=== PATIENT | male | born 1940 | race Caucasian/White ===

== ENCOUNTER 2019-01-09 22:28 | Observation (INO) | payer MEDICARE ==
[~2019-01-09] VITALS: Ht 175.3 cm
[~2019-01-09 22:28] MED LIST: ACETAMINOPHEN325 MG PO; CEFTRIAXONE1 G/VIAL IM; CELEXA20 MG PO; FLORAJEN3 CAPS460 MG PO; GLUCOPHAGE1000 MG PO; K-DUR20 MEQ PO; LANTUS INSULIN10 ML SQ; LIPITOR10 MG PO; MAG-OXIDE400 MG PO; NAMENDA5 MG PO; NEURONTIN 300300 MG PO; NORVASC5 MG PO; NOVOLIN R100 U/ML SC; NOVOLIN R100 U/ML SQ; PEPCID20 MG PO; PLAVIX75 MG PO; Rocephin INJ IM; SENOKOT-S TABLE1 TAB PO; ULTRAM50 MG PO; VITAMIN D10000 UNI1 PO; ZOLOFT50 MG PO
[2019-01-09] MEDS ORDERED: NORVASC5 MG PO (22:36)
[2019-01-09] MEDS ORDERED: NOVOLIN R (22:37)
[2019-01-09] MEDS ORDERED: PLAVIX75 MG PO (22:37)
[2019-01-09] MEDS ORDERED: K-DUR20 MEQ PO (22:38)
[2019-01-09] MEDS ORDERED: LISINOPRIL5 MG PO (22:38)
[2019-01-09 22:46] LABS: BASOPHILS 0.3 % (0-2); HEMATOCRIT 38.3 % (42.0-54.0); HEMOGLOBIN 12.5 g/dL (13.5-17.5); LYMPHOCYTES 29.2 % (15-50); MCH 28.7 pg (26.0-34.0); MCHC 32.6 g/dL (31.0-37.0); MEAN PLATELET VOLUME 8.6 fL (7.4-10.4); MONOCYTES 11.2 % (2-11); NEUTROPHILS 56.3 % (40-80); PLATELET COUNT 196 10x3/uL (130-400); RBC 4.35 10x6/uL (4.20-6.10); RDW 16.9 % (11.5-14.5); WBC 7.1 10x3/uL (4.8-10.8)
[2019-01-09 23:10] LABS: ALBUMIN 3.4 g/dL (3.4-5.0); ANION GAP 12.2 mmol/L (8-16); BILIRUBIN - TOTAL 0.25 mg/dL (0.2-1.3); CALCIUM 8.9 mg/dL (8.5-10.1); CARBON DIOXIDE 27.5 mmol/L (21.0-32.0); CREATININE - SERUM 1.4 mg/dL (0.6-1.3); MAGNESIUM - SERUM 2.3 mg/dL (1.8-2.4); POTASSIUM - SERUM 4.7 mmol/L (3.5-5.1); PROTEIN - SERUM 7.2 g/dL (6.4-8.2); TROPONIN-I 0.02 ng/mL (0.000-0.060)
[2019-01-09 23:38] VITALS: BP 122/50
--- NOTE | 2019-01-10 00:12 | NUR ---
PT ASSISTED WITH URINAL. PT NOW RESTING COMFORTABLY ON BED.
--- NOTE | 2019-01-10 00:57 | NUR ---
PT ARRIVED TO FLOOR BY WHEELCHAIR, REPORT TAKEN FROM SUKUMAR MEEHAN RN. PT IS A POOR HISTORIAN. UPON ENTERING ROOM ASSISTED PT IN AMBULATING TO TOILET. PT IS CURRENTLY SITTING ON TOILET. NO S/S OF DISTRESS NOTED. WILL CTM.
--- NOTE | 2019-01-10 01:49 | NUR ---
STILL WAITING FOR PT TO ALLOW TELEMETRY TO BE ESTABLISHED, PT IS CURRENTLY STILL SITTING ON TOILET AND PUSHING AWAY WHEN OFFERED ASSISTANCE. WILL CTM.
--- NOTE | 2019-01-10 02:14 | NUR ---
PT STILL SITTING ON TOILET, REFUSES TO LEAVE, WHEN ASKED IF HE NEEDS ASSISTANCE HE MAKES APHASIC SOUNDS "SI, SI, SI" AND THEN LOOKS BACK DOWN AT THE GROUND. WILL CTM.
[2019-01-10 03:46] VITALS: Ht 175.3 cm
--- NOTE | 2019-01-10 03:58 | NUR ---
PT RESTING COMFORTABLY IN BED AFTER BEING ASSISTED FROM TOILET. ONE LARGE BOWEL MOVEMENT OBSERVED. NO S/S OF DISTRESS NOTED. YAMILKA ALARM TURNED ON. CALL LIGHT IN REACH. WILL CTM.
--- NOTE | 2019-01-10 04:41 | NUR ---
ORDERED ECG PERFORMED AND PLACED ON CHART
--- NOTE | 2019-01-10 06:37 | NUR ---
PT REFUSES TO WEAR TELEMETRY. WILL NOTIFY ONCOMING NURSE.
--- NOTE | 2019-01-10 07:20 | NUR ---
ASSESSMENT COMPLETED. AWAKE AND ALERT. CONFUSED.RIGHT AC SL. HAS A LITTLE RIGHT SIDED WEAKNESS. REFUES TELEMERTY. PT HAS A BED ALARM TO BED. . WILL MONITOR
[2019-01-10 08:53] LABS: CHOL - HDL RATIO 1.9 ratio (2.3-4.9); LDL-HDL RATIO 0.6 ratio (1.5-3.5)
--- NOTE | 2019-01-10 09:39 | NUR ---
REFUSES TO STAY IN ROOM. PT IN CHAIR IN HALLWAY. WILL MONITOR
[2019-01-10] MEDS ORDERED: PEPCID PO (12:35)
[2019-01-10] MEDS ORDERED: LIPITOR10 MG PO (12:35)
[2019-01-10] MEDS ORDERED: LANTUS INSULIN10 ML SC (12:36)
[2019-01-10] MEDS ORDERED: SENNA8.6 MG PO (12:36)
[2019-01-10] MEDS ORDERED: HUMALOG 30100 UNITS/ SC (12:37)
[2019-01-10] MEDS ORDERED: VITAMIN D5000 UNIT PO (12:38)
[2019-01-10 12:46] VITALS: BP 104/71
--- NOTE | 2019-01-10 13:39 | NUR ---
I have reviewed this patient and I concur with the Shift Assessment completed by the Licensed Practical Nurse today this shift.
== END 2019-01-10 13:30 ==
LOC: D.ER 22:28 → OBSVTIME 23:53 → D.EDHOLD 23:53 → D.M2 01-10 00:11
PROVIDERS: Family Medicine; ADMIT Family Medicine; ATTEND Family Medicine
DX: R07.89 Other chest pain (principal); N28.9 Disorder of kidney and ureter, unspecified; I69.354 Hemiplegia and hemiparesis following cerebral infarction affecting left non-dominant side; I10 Essential (primary) hypertension; E11.9 Type 2 diabetes mellitus without complications; Z74.09 Other reduced mobility; F41.8 Other specified anxiety disorders; E78.5 Hyperlipidemia, unspecified; K21.9 Gastro-esophageal reflux disease without esophagitis; K59.09 Other constipation; E55.9 Vitamin D deficiency, unspecified; I25.10 Atherosclerotic heart disease of native coronary artery without angina pectoris; R00.8 Other abnormalities of heart beat; E11.40 Type 2 diabetes mellitus with diabetic neuropathy, unspecified

== ENCOUNTER 2019-01-19 15:00 | Inpatient (IN) | payer MEDICARE ==
[~2019-01-19] VITALS: Ht 175.3 cm; Wt 90.2 kg
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
[~2019-01-19 15:00] MED LIST changes: +HUMALOG 30100 UNITS/ SC; +LANTUS INSULIN10 ML SC; +LISINOPRIL5 MG PO; +NOVOLIN R; +PEPCID PO; +SENNA8.6 MG PO; +VITAMIN D5000 UNIT PO
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
[2019-01-19 16:59] VITALS: BP 119/64; BMI 28.4
[2019-01-19 17:04] LABS: APPEARANCE CLEAR (CLEAR); COLOR YELLOW (YELLOW); NITRITE NEGATIVE (NEGATIVE); PROTEIN NEGATIVE (NEGATIVE)
[2019-01-19 17:05] LABS: BILIRUBIN NEGATIVE (NEGATIVE); GLUCOSE 1000 mg/dL (NEGATIVE); KETONE NEGATIVE (NEGATIVE); UROBILINOGEN NORMAL (NORMAL)
[2019-01-19 17:14] LABS: BASOPHILS 0.3 % (0-2); EOSINOPHILS 2.7 % (0-7); HEMATOCRIT 37.6 % (42.0-54.0); HEMOGLOBIN 12.3 g/dL (13.5-17.5); IMMATURE GRANULOCYTES 0.2 % (0-5); LYMPHOCYTES 26.2 % (15-50); MCH 28.5 pg (26.0-34.0); MCHC 32.7 g/dL (31.0-37.0); MCV 87.2 fL (80.0-100.0); MEAN PLATELET VOLUME 9.2 fL (7.4-10.4); MONOCYTES 8.4 % (2-11); NEUTROPHILS 62.2 % (40-80); PLATELET COUNT 201 10x3/uL (130-400); RBC 4.31 10x6/uL (4.20-6.10); RDW 16.3 % (11.5-14.5); WBC 6.6 10x3/uL (4.8-10.8)
[2019-01-19 17:46] LABS: ALBUMIN 3.6 g/dL (3.4-5.0); ANION GAP 14.6 mmol/L (8-16); BILIRUBIN - TOTAL 0.31 mg/dL (0.2-1.3); CALCIUM 8.7 mg/dL (8.5-10.1); CARBON DIOXIDE 25.1 mmol/L (21.0-32.0); CHOL - HDL RATIO 2.3 ratio (2.3-4.9); CREATININE - SERUM 1.4 mg/dL (0.6-1.3); LDL-HDL RATIO 0.7 ratio (1.5-3.5); POTASSIUM - SERUM 4.7 mmol/L (3.5-5.1); PROTEIN - SERUM 6.9 g/dL (6.4-8.2); THYROID STIMULATING HORMONE 2.22 uIU/mL (0.36-3.74)
[2019-01-19] MEDS ORDERED: GLUCOPHAGE500 MG PO (18:12)
[2019-01-19] MEDS ORDERED: JARDIANCE10 MG PO (18:12)
[2019-01-19] MEDS ORDERED: LANTUS INSULIN10 ML SC (18:13)
[2019-01-19] MEDS ORDERED: HYDROCODON-ACE1 EAC7 PO (18:15)
[2019-01-19] MEDS ORDERED: MAG-OXIDE400 MG PO (18:16)
[2019-01-19 20:21] VITALS: BP 124/66
--- NOTE | 2019-01-20 02:00 | NUR ---
RECEIVED IN DAYROOM. SITTING ON COUCH WITH PEERS BY HIS SIDE. CALM AND COOPERATIVE WITH CARE AND ASSESSMENT. NO AGGRESSIVE BEHAVIORS. REDIRECT AND REORIENT NEEDED. RESTING IN BED WITH EYES CLOSED AT THIS TIME. CONTINUE PLAN OF CARE.
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
--- NOTE | 2019-01-20 08:00 | NUR ---
PRN MED EFFECTIVE AT THIS TIME. PT SITTING IN DAYROOM WITH PEERS. NO AGGRESSION NOTED AT THIS TIME. WILL CPOC.
[2019-01-20 09:56] VITALS: BMI 28.3
--- NOTE | 2019-01-20 17:00 | NUR ---
DR DALLAS OROZCO OF B/S 472. LAB CALLED STAT GLUCOSE ORDERED. NEW ORDER FOR 15 UNITS OF REGULAR INSULIN NOW GIVEN. ORDER NOTED AND ORDERED. MED GIVEN PER ORDER. WILL REPORT TO ON GOING SHIFT TO RECHECK B/S IN TWO HOURS. WILL CONTINUE TO MONITOR FOR S/SX OF HYPOGLYCEMIA.
[2019-01-20 20:04] VITALS: BP 131/83
--- NOTE | 2019-01-20 20:22 | NUR ---
RECEIVED IN DAYROOM. RESTING IN RECLINER WITH EYES CLOSED. RESPONDS TO VOICE. CALM AND COOPERATIVE WITH CARE AND ASSESSMENT. NO AGGRESSIVE BEHAVIORS THIS EVENING. REDIRECT AND REORIENT NEEDED. CONTINUES TO REST QUIETLY IN RECLINER AT THIS TIME. CONTINUE PLAN OF CARE.
--- NOTE | 2019-01-21 07:25 | NUR ---
REC'D PT STANDING IN DOORWAY WITH WALKER. RESP EVEN AND NONLABORED. NO ACUTE DISTRESS NOTED. PT UNABLE TO CLEARLY COMMUNICATE WITH STAFF. COMMUNICATE WITH GESTURES AT TIMES. PT URINATES ON THE FLOOR. UNABLE TO REDIRECT AT TIMES. PT BECOMES UPSET WITH REDIRECTION. WILL CONT TO MONITOR Q 15 MINS FOR SAFETY.
[2019-01-21 08:16] VITALS: BP 113/54
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
[2019-01-21 11:11] LABS: FOLATE (FOLIC ACID) - SERUM 11.2 ng/mL (>3.0)
[2019-01-21 12:07] VITALS: Ht 175.3 cm; Wt 90.2 kg
--- NOTE | 2019-01-21 12:29 | NUR ---
THIS NURSE SPOKE WITH DR. HAYNES IN REGARDS TO PT CRITICAL BLOOD SUAGR LEVEL: 434 MG/DL. NO NEW ORDERS; CONTINUE SLIDING SCALE. WILL CONT TO MONITOR PER ORDER.
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
--- NOTE | 2019-01-21 18:41 | NUR ---
EPT SITTING IN DAY AREA WATCHING T.V. NO ACUTE DISTRESS NOTED. RESP EVEN AND NONLABORED. PT MAKES MULTIPLE TRIPS TO RESTROOM DURING THE DAY WITH INCONTIENT EPISODES DURING THE DAY. PT CAN BE VERBALLY AGGRESSIVE STATING "UHH UHH UHH" WITH HAND GESTURES NOTED TO RELAY MESSAGE. PT CAN BE REDIRECTED AFTER SEVERAL STAFF MEMBERS ATTEMPT TO REDIRECT. MED COMPLIANT THIS SHIFT. PT BLOOD SUGARS THIS SHIFT HAVE BEEN HIGHER AND REPORTED TO THE DOCTOR. NO NEW ORDERS GIVEN. SPEECH THERAPY ORDERED FOR PT. PT AMBULATES WITH A WALKER PER SELF. NONSKID SOCKS AND SHOES ON. WILL CONT TO MONITOR Q 15 MINS FOR SAFETY.
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
--- NOTE | 2019-01-22 08:50 | NUR ---
B) The patient is awake and alert, he is nonverbal, he does just ramble, but he does not say words. he gets irritable easily. He did not want to take any of his medications today. Did talk him into taking his diabetic medications. He does ambulate with a walker. Ann Jara, our Digital Media Producer has allowed the patient to use his own rolling walker as he is used to it and there is a language barrier. I) Provide prescribed meds. R) The patient is compliant with meds and unit milieu. P) Continue POC.
[2019-01-22 09:18] VITALS: BP 124/63
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
--- NOTE | 2019-01-22 14:35 | NUR ---
The patient c/o his entire right arm hurting. Did take his bp in his left arm it is 104/56. Asked him if he would like Tylenol, he said "Yea" and held up two fingers.
--- NOTE | 2019-01-22 14:43 | NUR ---
The patient c/o pain, he is nearly in tears. Provided Tylenol 650 mg PO now, will monitor.
--- NOTE | 2019-01-22 15:20 | NUR ---
The patietn says his pain is gone now from his right arm. He is smiling from time to time.
[2019-01-22 20:28] VITALS: BP 125/64
[2019-01-23 08:47] VITALS: BP 128/77
--- NOTE | 2019-01-23 10:20 | PN ---
PATIENT:SRINIVASA GOMEZ MEDICAL RECORD: [id number] LOCATION:[facility] ADMISSION DATE: 01/19/19 PROGRESS NOTE DATE OF SERVICE: 01/22/2019 SUBJECTIVE: The patient's case was discussed with staff. He has no new complaint. OBJECTIVE: The patient denies intent to harm himself or others. He is answering questions that are phrased yes or no in a very appropriate way. ASSESSMENT: Vascular dementia. PLAN: There has been no further aggression. I am encouraged by his improvement. His long-term prognosis is guarded. TRANSINT:[id number] Voice Confirmation ID: [id number] DOCUMENT ID: [id number] BRODIE CRUZ MD at 1020 CC: [id number] DICTATION DATE: 01/22/19 1226 CARE INFORMATION ASSOCIATE: 01/22/19 1309 ADM IN [facility] [address] [place] [address]
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
[2019-01-23 20:12] VITALS: BP 117/80
--- NOTE | 2019-01-24 07:33 | NUR ---
PT C/O OF RIGHT ARM PAIN AND WEAKNESS. PT UNABLE TO MOVE HIS RIGHT ARM AND WHEN ASKED IF HE CAN FEEL NURSE THE NURSE TOUCHING HIS RIGHT ARM. NURSE ASKED YES WAITED FOR RESPONSE THEN ASKED NO. DUE TO PT DOES HAVE LANGUAGE BARRIER. PT SHOOK HEAD TO NO. DROOLING, WEAKNESS AND RIGHT HAND UNABLE TO STRAIGHTEN OUT AT THIS TIME. DR. HAYNES CALLED. NEW ORDER FOR ASPIRIN 325MG P.O DAILY. NEW ORDER NOTED. WILL CONTINUE TO MONITOR.
--- NOTE | 2019-01-24 08:15 | NUR ---
DR. HAYNES PRESENT MAKING ROUNDS.
[2019-01-24 08:29] VITALS: BP 134/77
--- NOTE | 2019-01-24 10:56 | PN ---
PATIENT:SRINIVASA GOMEZ MEDICAL RECORD: [id number] LOCATION:[facility] ADMISSION DATE: 01/19/19 PROGRESS NOTE DATE OF SERVICE: 01/23/2019 SUBJECTIVE: The patient's case was discussed with staff. He has no new complaint. OBJECTIVE: The patient is following directions in Argentine and answering questions that can be answered yes or no, in Argentine. He has an expressive dysphasia secondary to a stroke. Argentine is not his first language, but he certainly has a good command of it and I see no reason to have a Mosotho motor vehicle parts interpreter even if one could be found in this area. ASSESSMENT: Vascular dementia. PLAN: Supportive and educational interventions were made. Long-term prognosis is guarded. TRANSINT:[id number] Voice Confirmation ID: [id number] DOCUMENT ID: [id number] BRODIE CRUZ MD at 1056 CC: [id number] DICTATION DATE: 01/23/19 1132 DYE STAND LOADER: 01/23/19 1156 ADM IN [place] [address] [place] [address]
[2019-01-24 19:29] VITALS: BP 130/80
--- NOTE | 2019-01-24 21:37 | NUR ---
PATIENT SEEMS AGITATED MOST OF THE TIME, CAN NOT VERBALIZE NEEDS, CAN SHAKE HEAD YES AND NO. COMPLIANT WITH MEDS, NO ADVERSE REACTION NOTED. WILL MONITOR POC
--- NOTE | 2019-01-25 07:30 | NUR ---
REC'D PT IN HALLWAY WITH PEERS. ALERT AND ORIENTED TO PERSON. CALM AND COOPERATIVE WITH ASSESSMENT. NO AGGRESSION NOTED. REDIRECT AND REORIENT NEEDED. MED COMPLIANT. FALL PRECAUTIONS IN PLACE. WILL CPOC.
[2019-01-25 08:12] VITALS: BP 100/58
--- NOTE | 2019-01-25 11:00 | NUR ---
Nutrition Follow Up: Chart reviewed Diet: [facility] Soft PO Intake: 93% meal avg BM: 01/24/19 Labs reviewed - Glucose elevated Meds noted Rec continue current diet. RD following.
--- NOTE | 2019-01-25 14:46 | PN ---
PATIENT:SRINIVASA GOMEZ MEDICAL RECORD: [id number] LOCATION:[facility] ADMISSION DATE: 01/19/19 PROGRESS NOTE DATE OF SERVICE: 01/24/2019 SUBJECTIVE: The patient's case was discussed with staff. He has no new complaint. OBJECTIVE: The patient denies intent to harm himself or others. He tolerates his medicines well. He has some right-sided arm and leg pain. Dr. Arriaga is going to assess this in case it is a neurologic event. ASSESSMENT: Vascular dementia. PLAN: I am going to maintain him on current medicines. He is sleeping and eating well. He has not been aggressive. TRANSINT:[id number] Voice Confirmation ID: [id number] DOCUMENT ID: [id number] BRODIE CRUZ MD at 1446 CC: [id number] DICTATION DATE: 01/24/19 1128 KENO ATTENDANT: 01/24/191945 ADM IN [facility] [address] [place] [address]
[2019-01-25 19:53] VITALS: BP 147/70
--- NOTE | 2019-01-26 04:02 | NUR ---
RECEIVED IN PATIENT ROOM. RESTING IN BED WITH EYES OPEN. CALM AND COOPERATIVE WITH CARE AND ASSESSMENT. NO AGGRESSIVE BEHAVIORS. REDIRECT AND REORIENT NEEDED. RESTIING IN BED WITH EYES CLOSED AT THIS TIME. CONTINUE PLAN OF CARE.
--- NOTE | 2019-01-26 12:44 | PN ---
PATIENT:SRINIVASA GOMEZ MEDICAL RECORD: [id number] LOCATION:[facility] ADMISSION DATE: 01/19/19 PROGRESS NOTE DATE OF SERVICE: 01/25/2019 SUBJECTIVE: The patient's case was discussed with staff. He has no new complaint. OBJECTIVE: The patient denies intent to harm himself or others. He does tolerate his medicines well. ASSESSMENT: No change in diagnoses. PLAN: Supportive and educational interventions were made. Long-term prognosis is guarded. The patient will be given a low dose of Celexa to assist with his behavior issues. His long-term prognosis is guarded. TRANSINT:[id number] Voice Confirmation ID: [id number] DOCUMENT ID: [id number] BRODIE CRUZ MD at 1244 CC: [id number] DICTATION DATE: 01/25/19 1631 LINE BUILDER: 01/25/19 1903 ADM IN [facility] [address] [place] [address]
[2019-01-26 19:30] VITALS: BP 100/26
--- NOTE | 2019-01-26 21:40 | NUR ---
RECEIVED IN PATIENT ROOM. RESTING IN BED WITH EYES OPEN. CALM AND COOPERATIVE WITH CARE AND ASSESSMENT. NO AGGRESSIVE BEHAVIORS THIS EVENING. REDIRECT AND REORIENT NEEDED. RESTING IN BED WITH EYES CLOSED AT THIS TIME. CONTINUE PLAN OF CARE.
[2019-01-27 08:00] VITALS: BP 125/67
--- NOTE | 2019-01-27 15:45 | PN ---
PATIENT:SRINIVASA GOMZE MEDICAL RECORD: [id number] LOCATION:[facility] ADMISSION DATE: 01/19/19 PROGRESS NOTE DATE OF SERVICE: 01/26/2019 SUBJECTIVE: The patient's case was discussed with staff. He has no new complaint. OBJECTIVE: The patient denies intent to harm himself or others. He is following instructions. He is sleeping reasonably well and has not been seriously agitated today. ASSESSMENT: Vascular dementia. PLAN: Current medicines have been reviewed and will be maintained. Long-term prognosis is guarded. TRANSINT:[id number] Voice Confirmation ID: [id number] DOCUMENT ID: [id number] BRODIE CRUZ MD at 1545 CC: [id number] DICTATION DATE: 01/26/19 1540 SUPERVISOR YARD: 01/26/19 1606 ADM IN [facility] [address] [place] [address]
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
[2019-01-27 22:21] VITALS: BP 124/61
--- NOTE | 2019-01-28 02:00 | NUR ---
RECEIVED IN DAYROOM. SITTING QUIETLY IN CHAIR. CALM AND COOPERATIVE WITH CARE AND ASSESSMENT. NO AGGRESSIVE BEHAVIORS. REDIRECT AND REORIENT NEEDED. RESTING IN BED WITH EYES CLOSED AT THIS TIME. CONTINUE PLAN OF CARE.
[2019-01-28 09:08] VITALS: BP 107/57
--- NOTE | 2019-01-28 10:00 | NUR ---
B) The patient is awake and alert, he has had a stroke so he doesn't speak. He can say "Yes or No." He also shakes his head yes or no. He is taking his medication, he ambulates with his rolling walker. I) Provide prescribed meds. Redirect to appropriate behavior. R) The patient does like to argue at times and when confronted he will smile. P) Continue POC.
--- NOTE | 2019-01-28 12:38 | NUR ---
Staff discussed that this patient is on a bladder schedule, will need to discuss this further as he is getting upset with staff and he has no real way to express himself except by anger.
--- NOTE | 2019-01-28 13:22 | NUR ---
Nutrition Follow Up: Chart reviewed Diet: ADA [facility] Soft PO Intake: 91% meal avg BM: 01/27/19 Meds and labs reviewed Rec continue ADA diet with SHIPPING AND RECEIVING SPECIALIST recs for consistencies. RD following.
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
--- NOTE | 2019-01-28 18:00 | NUR ---
Questioned the patient about her medical history, she answered most of the questions appropriately.
--- NOTE | 2019-01-28 19:50 | NUR ---
RECEIVED IN PATIENT ROOM. RESTING IN BED WITH EYES OPEN. CALM AND COOPERATIVE WITH CARE AND ASSESSMENT. NO AGGRESSIVE BEHAVIORS. REDRIECT AND REORIENT NEEDED. RESTING IN BED WITH EYES CLOSED AT THIS TIME. CONTINUE PLAN OF CARE.
[2019-01-28 21:16] VITALS: BP 107/59
[2019-01-29 09:37] VITALS: BP 130/65
--- NOTE | 2019-01-29 12:12 | NUR ---
B) The patient is awake and alert, he is nonverbal except to say no or yea. He is on a toileting schedule and he is going every one hour. He is not showing aggression today, but he does get agitated if he does not get his way. He was served baked fish and he said he did not want it. Did send a diet message for a hamburger with the works. He ambulates with a rolling walker independently. I) Provide prescribed meds. Redirect to appropriate behavior. R) The patient is compliant with meds. P) Continue POC.
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
--- NOTE | 2019-01-29 15:36 | NUR ---
Dr. Mclaughlin is here and he did assist staff with the patient's IM ativan 0.5 mg and haldol 2 mg injection in his left deltoid. The patient did not fight and he tolerated it well.
--- NOTE | 2019-01-29 15:40 | NUR ---
Explained to the patient why he received the injection he got fussy and was pointing at Gabbi, did ask him to sit down as the medicine will make him sleepy. He did sit down.
--- NOTE | 2019-01-29 15:55 | PN ---
PATIENT:SRINIVASA GOMEZ MEDICAL RECORD: [id number] LOCATION:[facility] ADMISSION DATE: 01/19/19 PROGRESS NOTE DATE OF SERVICE: 01/28/2019 SUBJECTIVE: The patient's case was discussed with staff. He has no new complaint. OBJECTIVE: The patient has been very agitated today, threatening and disruptive and difficult to redirect. ASSESSMENT: Vascular dementia. PLAN: The patient required p.r.n. Haldol and Ativan because of his agitation. He will be treated with scheduled dose of Geodon to assist with his agitation. His long-term prognosis is guarded. TRANSINT:[id number] Voice Confirmation ID: [id number] DOCUMENT ID: [id number] BRODIE CRUZ MD at 1555 CC: [id number] DICTATION DATE: 01/28/19 1548 GAME ATTENDANT: 01/28/19 1600 ADM IN [place] [address] [place] [id number]
--- NOTE | 2019-01-29 16:00 | NUR ---
The patient walked up to his room to void urine. Will walk him back down to the day room.
[2019-01-29 19:47] VITALS: BP 125/56
--- NOTE | 2019-01-30 04:11 | NUR ---
B) Patient is alert and oriented to self, grumpy at times, non-verbal, difficult to redirect, I) Administered scheduled medications as ordered, PRN Roy given at 03:03 for generalized pain, assisted with needs, R) Medication compliant, up several times in the night, P) Continue plan of care.
[2019-01-30 07:57] VITALS: BP 126/62
[2019-01-30 07:59] VITALS: BP 126/62
--- NOTE | 2019-01-30 10:08 | NUR ---
B) The patient did not want to get out of bed this am, did let him stay in bed until 0830. Then he got up on his own. The patient ambulates independently with a walker. I) Provide prescribed meds, redirect to appropriate behavior today. R) The patient is compliant with medications, he has not shown aggression this morning, he is sleepy today. P) Continue POC.
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
--- NOTE | 2019-01-30 12:00 | NUR ---
Checked the patient's blood sugar, but not enough blood got in the strip to read so went and got a bit more, but the strip read error, redid the strip from the same area and the strip read 405, rechecked the fsbs on the opposite hand with fresh blood and the strip read 319. Did provide prescribed insulin as per the 319 reading.
[2019-01-30 20:07] VITALS: BP 130/69
--- NOTE | 2019-01-30 21:29 | NUR ---
B) Patient is alert and orieted to self, self isolating, grumpy at times, I) Administered scheduled medications as ordered, monitored for safety R) Medication compliant, resting quietly in his bed, P) Continue plan of care.
[2019-01-31 07:00] VITALS: BP 114/57
--- NOTE | 2019-01-31 10:17 | PN ---
PATIENT:SRINIVASA GOMEZ MEDICAL RECORD: [id number] LOCATION:[facility] ADMISSION DATE: 01/19/19 PROGRESS NOTE DATE OF SERVICE: 01/30/2019 SUBJECTIVE: The patient's case was discussed with staff. He has no new complaint. OBJECTIVE: The patient is in good behavioral control with limited insight about his situation. He is tolerating his medicines well. ASSESSMENT: No change in diagnoses. PLAN: Current medicines and therapies have been reviewed and will be maintained. Long-term prognosis is guarded. TRANSINT:[id number] Voice Confirmation ID: [id number] DOCUMENT ID: [id number] BRODIE CRUZ MD at 1017 CC: [id number] DICTATION DATE: 01/30/19 1154 MEAT TEAM MEMBER: 01/30/19 1209 ADM IN [place] [address] [place] [address]
--- NOTE | 2019-01-31 18:28 | NUR ---
COMPLIANT WITH STAFF AND MEDS.KEEPS TO SELF. WAS NOTIFIED OF FSBS 437 BEFORE DINNER.ORDERS TO CONTINUE TO MONITOR BLD SUGARS RECEIVED.WILL CONTINUE WITH PLAN OF CARE,MONITOR FOR CHANGES AND SAFETY.
--- NOTE | 2019-01-31 18:45 | NUR ---
FSBS 225
[2019-01-31 23:07] VITALS: BP 107/59
--- NOTE | 2019-02-01 07:45 | NUR ---
PT IS AWAKE AND ALERT, HE HAS HAD A STROKE SO HE DOESNT SPEAK CLEARLY. WILL ANSER QUESTIONS WITH YES OR NO. PT IS ALSO SHAKE HIS HEAD YES OR NO. CALM AND COOPERATIVE WITH ASSESSMENT. NO AGGRESSION NOTED AT THIS TIME. MED COMPLIANT. REDIRECT AND REORIENT NEEDED. FALL PRECAUTIONS IN PLACE. WILL CONTINUE TO MONITOR Q 15 MINUTES FOR SAFETY. WILL CPOC.
--- NOTE | 2019-02-01 13:45 | PN ---
PATIENT:SRINIVASA GOMEZ MEDICAL RECORD: [id number] LOCATION:[facility] ADMISSION DATE: 01/19/19 PROGRESS NOTE DATE OF SERVICE: 01/31/2019 SUBJECTIVE: The patient's case was discussed with staff. He has no new complaint. OBJECTIVE: The patient is in good behavioral control with limited insight about his condition. He tolerates his medicines well. ASSESSMENT: Vascular dementia. PLAN: Supportive and educational interventions were made. Long-term prognosis is guarded. TRANSINT:[id number] Voice Confirmation ID: [id number] DOCUMENT ID: [id number] BRODIE CRUZ MD at 1345 CC: [id number] DICTATION DATE: 01/31/19 1023 CHEESE BLENDER: 01/31/19 1335 ADM IN [place] [address] [place] [address]
[2019-02-01 20:07] VITALS: BP 120/80
--- NOTE | 2019-02-01 22:54 | NUR ---
RECEIVED IN PATIENT ROOM. RESTING IN BED WITH EYES OPEN. CALM AND COOPERATIVE WITH CARE AND ASSESSMENT. NO AGGRESSIVE BEHAVIORS. REDIRECT AND REORIENT NEEDED. RESTING IN BED WITH EYES CLOSED AT THIS TIME. CONTINUE PLAN OF CARE.
--- NOTE | 2019-02-02 07:45 | NUR ---
REC'D PT IN HALLWAY IN RECLINING CHAIR WITH PEERS. PT APPEARS VERY SLEEPY. CALM AND COOPERATIVE WITH ASSESSMENT. REDIRECT AND REORIENT NEEDED. MED COMPLIANT. FALL PRECAUTIONS IN PLACE. NO AGGRESSION NOTED. WILL CONTINUE TO MONITOR Q 15 MINUTES FOR SAFETY.
[2019-02-02 08:00] VITALS: BP 115/63
--- NOTE | 2019-02-02 12:08 | NUR ---
Nutrition Follow Up: Chart reviewed Diet: ADA [facility] Soft PO Intake: 94% meal avg BM: 01/29/19 Meds and labs reviewed Rec continue ADA diet with FIRE FIGHTERS DISPATCHER recs for consistencies. RD following.
--- NOTE | 2019-02-02 15:50 | PN ---
PATIENT:SRINIVASA GOMEZ MEDICAL RECORD: [id number] LOCATION:[facility] ADMISSION DATE: 01/19/19 PROGRESS NOTE DATE OF SERVICE: 02/01/2019 SUBJECTIVE: The patient's case was discussed with staff. He has no new complaint. OBJECTIVE: The patient seems somewhat sedated today. He is receiving both Geodon and Klonopin for his agitation. In addition to this, he received trazodone to assist with sleep consolidation and he is receiving hydrocodone every 4 hours for pain in his arm. ASSESSMENT: Vascular dementia. PLAN: I think that the arm discomfort is a paraesthesia. I am going to start him on Neurontin and will also discontinue his hydrocodone because of concerns about addiction. In addition to that, I am going to put him on a scheduled dose of ibuprofen for his discomfort. TRANSINT:[id number] Voice Confirmation ID: [id number] DOCUMENT ID: [id number] BRODIE CRUZ MD at 1550 CC: [id number] DICTATION DATE: 02/01/19 1542 ADVERTISEMENT DISTRIBUTOR: 02/01/19 1745 ADM IN [facility] [address] [place] [address]
[2019-02-02 20:43] VITALS: BP 120/56
--- NOTE | 2019-02-02 21:35 | NUR ---
B) The patient is sleepy this pm, he was in his bed by eight pm. he did awaken to take his meds. He is pleasant, but he does not speak d/t a stroke. He ambulates with his rolling walker. I) Provide prescribed meds. R) The patient is calm. He is compliant with meds. P) Continue POC.
--- NOTE | 2019-02-03 07:30 | NUR ---
REC'D PT IN HALLWAY SITTING IN CHAIR. AWAKE AND ALERT TO PERSON. CALM AND COOPERATIVE WITH ASSESSMENT. NO AGGRESSION NOTED AT THIS TIME. PT IS MORE ALERT THIS AM. PT SMILING AND LAUGHING WITH STAFF AND PEERS. MED COMPLIANT. REDIRECT AND REORIENT NEEDED. FALL PRECAUTIONS IN PLACE. WILL CPOC.
[2019-02-03 08:25] VITALS: BP 131/68
--- NOTE | 2019-02-03 14:03 | PN ---
PATIENT:SRINIVASA GOMEZ MEDICAL RECORD: [id number] LOCATION:[facility] ADMISSION DATE: 01/19/19 PROGRESS NOTE DATE OF SERVICE: 02/02/2019 SUBJECTIVE: The patient's case was discussed with staff. He has no new complaint. OBJECTIVE: The patient is in good behavioral control with limited insight about his condition. He tolerates his medicines well. ASSESSMENT: Vascular dementia. PLAN: The patient is little oversedated. I am going to hold his Geodon and Klonopin. His long-term prognosis is guarded. I suspect these medicines will be restarted at probably a lower dose in a day or so. TRANSINT:[id number] Voice Confirmation ID: [id number] DOCUMENT ID: [id number] BRODIE CRUZ MD at 1403 CC: [id number] DICTATION DATE: 02/02/19 1537 VERIFY REP: 02/02/19 1832 ADM IN [facility] [address] [place] [address]
[2019-02-03 20:00] VITALS: BP 125/48
--- NOTE | 2019-02-03 20:46 | NUR ---
RECEIVED IN PATIENT ROOM. GETTING READY FOR BED. CALM AND COOPERATIVE WITH CARE AND ASSESSMENT. NO AGGRESSIVE BEHAVIORS. REDIRECT AND REORIENT NEEDED. RESTING IN BED WITH EYES OPEN AT THIS TIME. CONTINUE PLAN OF CARE.
--- NOTE | 2019-02-04 04:20 | NUR ---
PATIENT GIVEN TYLENOL 650 MG PO FOR ARM PAIN 5 OF 10,
--- NOTE | 2019-02-04 07:50 | NUR ---
REC'D PT SITTING IN CHAIR. RESP EVEN AND NONLABORED. NO DISTRESS NOTED. SOME CONFUSION NOTED. PT CAN ANSWER YES AND NO QUESTIONS. PLESANT AT THIS TIME. PT AMBULATES WITH WALKER. WILL CONT TO MONITOR Q 15 MINS FOR SAFETY.
[2019-02-04 12:51] VITALS: BP 162/73
--- NOTE | 2019-02-04 14:19 | PN ---
PATIENT:SRINIVASA GOMEZ MEDICAL RECORD: [id number] LOCATION:[facility] ADMISSION DATE: 01/19/19 PROGRESS NOTE DATE OF SERVICE: 02/03/2019 SUBJECTIVE: The patient's case was discussed with staff. He has no new complaint. OBJECTIVE: The patient denies intent to harm himself or others. He has been in good behavioral control. ASSESSMENT: Vascular dementia. PLAN: The patient is going to be given a low dose of Geodon to assist with his thought disorganization. He will be monitored for clinical changes associated with its use. TRANSINT:[id number] Voice Confirmation ID: [id number] DOCUMENT ID: [id number] BRODIE CRUZ MD at 1419 CC: [id number] DICTATION DATE: 02/03/19 1425 SUPERVISOR LIQUEFACTION: 02/03/19 1625 ADM IN [place] [id number] [place] [id number]
--- NOTE | 2019-02-04 18:14 | NUR ---
PT SITTING IN DINING ROOM. RESP EVEN AND NONLABORED. NO ACUTE DISTRESS NOTED. PT CAN NOT FIND CAP AND STAFF ATTEMPTED MULTIPLE TIMES TO LOCATE CAP WITH NO SUCCESS. EVS DID NOT HAVE CAP. WILL PASS ONTO NEXT SHIFT. MED COMPLIANT. COMPLIANT WITH BLOOD SUGARS. NO AGGRESSIVE BEHAVIORS NOTED THIS SHIFT. WILL CONT TO MONITOR Q 15 MINS FOR SAFETY.
[2019-02-04 20:36] VITALS: BP 128/62
--- NOTE | 2019-02-05 03:15 | NUR ---
B) Patient is alert and oriented to person, pleasant and in a good mood, smiling at staff, nonverbal, communicates by pointing and able to answer yes/no questions I) Administered scheduled medications, monitored for safety, staff shave his face, R) Mediation compliant, pleasant and friendly today, P) Continue plan of care.
--- NOTE | 2019-02-05 05:15 | PN ---
PATIENT:SRINIVASA GOMEZ MEDICAL RECORD: [id number] LOCATION:[facility] ADMISSION DATE: 01/19/19 PROGRESS NOTE DATE OF SERVICE: 02/04/2019 SUBJECTIVE: The patient's case was discussed with staff. He has no new complaint. OBJECTIVE: The patient denies intent to harm himself or others. He generally tolerates his medicines well. He has not been aggressive today. ASSESSMENT: Vascular dementia. PLAN: Supportive and educational interventions were made. Long-term prognosis is guarded. TRANSINT:[id number] Voice Confirmation ID: [id number] DOCUMENT ID: [id number] BRODIE CRUZ MD at 0515 CC: [id number] DICTATION DATE: 02/04/191651 RESISTOR COATER: 02/04/191922 ADM IN [facility] [address] [place] [address]
[2019-02-05 08:17] VITALS: BP 163/87
--- NOTE | 2019-02-05 08:24 | NUR ---
REC'D PT SITTING IN CHAIR. RESP EVEN AND NONLABORED. NO ACUTE DISTRESS NOTED. ORIENTED TO PERSON PLESANT WITH STAFF. AMBULATES WITH WALKER. NO AGGRESSIVE BEHAVIOR NOTED AT THIS TIME. WILL CONT PLAN OF CARE. WILL CONT TO MONITOR Q 15 MINS FOR SAFETY.
[2019-02-05 09:02] VITALS: BP 163/87
--- NOTE | 2019-02-05 18:22 | NUR ---
PT SITTING IN DAY AREA SOCIALIZING WITH PEERS AT THIS TIME. RESP EVEN AND NONLABORED. NO ACUTE DISTRESS NOTED. MED COMPLIANT AND INSULIN COMPLIANT. PT AMBULATES WITH WALKER. NO AGGRESSIVE BEHAVIOR NOTED THIS SHIFT. PT IN PLESANT MOOD THIS SHIFT. ATTENDS GROUPS. SOME CONFUSION NOTED. WILL CONT PLAN OF CARE. WILL CONT TO MONITOR Q 15 MINS FOR SAFETY.
[2019-02-05 19:24] VITALS: BP 121/62
--- NOTE | 2019-02-05 20:27 | NUR ---
B) Patient is alert and oriented to person and place, calm and cooperative this shift, I) Administered scheduled medications as ordered, assisted with needs, R) Medication compliant, pleasant and friendly P) Continue plan of care.
[2019-02-06 09:03] VITALS: BP 162/69
--- NOTE | 2019-02-06 10:58 | NUR ---
REC'D PT SITTING IN CHAIR WITH WALKER IN FRONT OF HIM. RESP EVEN AND NONLABORED. NO ACUTE DISTRESS NOTED. PT IS NONVERBAL. PLESANT WITH STAFF AND PEERS. AMBULATES WITH WALKER. WILL CONT PLAN OF CARE. WILL CONT TO MONITOR Q 15 MINS FOR SAFETY.
--- NOTE | 2019-02-06 18:45 | PN ---
PATIENT:SRINIVASA GOMEZ MEDICAL RECORD: [id number] LOCATION:[facility] ADMISSION DATE: 01/19/19 PROGRESS NOTE DATE OF SERVICE: 02/05/2019 SUBJECTIVE: The patient's case was discussed with staff. He has no new complaint. OBJECTIVE: The patient slept reasonably well last night. He is tolerating his medicines well. He does get easily angered and irritable with staff. He has almost no insight about his situation. ASSESSMENT: Vascular dementia. PLAN: The patient's Geodon is going to be increased slightly. The Geodon is being used to treat his underlying irritability and peripheral neuropathy. Hopefully, this will assist him in not being quite so agitated. TRANSINT:[id number] Voice Confirmation ID: [id number] DOCUMENT ID: [id number] BRODIE CRUZ MD at 1845 CC: [id number] DICTATION DATE: 02/05/19528 LAPPING MACHINE OPERATOR: 02/05/19 0850 ADM IN [facility] [address] [place] [id number]
--- NOTE | 2019-02-06 18:47 | NUR ---
PT SITTING IN CHAIR IN DAY AREA. RESP EVEN AND NONLABORED. NO ACUTE DISTRESS NOTED. MED COMPLIANT. NO BEHAVIORS NOTED THIS SHIFT. PT IS NONVERBAL. AMBULATES WITH WALKER AND TOILETS SELF. COMPLIANT WITH INSULIN THIS SHIFT. PT PLEASANT WITH STAFF AND PEERS. WILL CONT PLAN OF CARE.
[2019-02-06 19:27] VITALS: BP 140/80
--- NOTE | 2019-02-06 20:30 | NUR ---
PATIENT COMPLIANT WITH MEDS, PATIENT CAN NOT SPEAK BUT CAN MAKE BASIC NEEDS KNOWN BY POINTING OR SHAKING HEAD YES OR NO. COMPIANT WITH MEDS, WALKS WITH WALKER. WILL FOLLOW POC
[2019-02-07 08:13] VITALS: BP 98/64
--- NOTE | 2019-02-07 08:16 | NUR ---
REC'D PT WALKING WITH WALKER IN HALLWAY. RESP EVEN AND NONLABORED. CONFUSION NOTED. PT IS NONVERBAL BUT CAN MAKE BASIC NEEDS KNOWN WITH ANSWERS TO YES OR NO QUESTIONS. COMPLIANT WITH MEDS. NO BEHAVIORS NOTED. WILL CONT PLAN OF CARE.
[2019-02-07 08:27] VITALS: BP 140/59
--- NOTE | 2019-02-07 09:49 | PN ---
PATIENT:SRINIVASA GOMEZ MEDICAL RECORD: [id number] LOCATION:[facility] ADMISSION DATE: 01/19/19 PROGRESS NOTE DATE OF SERVICE: 02/06/2019 SUBJECTIVE: The patient's case was discussed with staff. He has no new complaint. OBJECTIVE: The patient denies intent to harm himself or others. He seems to be much more comfortable with his arm. In fact this is the first day when I asked about it that he did not rub it and complain that it hurt. I think the Neurontin has helped with the neuropathic pain that he was experiencing there. ASSESSMENT: Vascular dementia. PLAN: Current medicines have been reviewed and will be maintained. I am going to increase the dose of the Celexa slightly. TRANSINT:[id number] Voice Confirmation ID: [id number] DOCUMENT ID: [id number] BRODIE CRUZ MD at 0949 CC: [id number] DICTATION DATE: 02/06/19 185 SALES ESTIMATOR: 02/07/19 0444 ADM IN [place] [address] [place] [address]
--- NOTE | 2019-02-07 18:17 | NUR ---
PT SITTING IN DINING ROOM WATCHING T.V. RESP EVEN AND NONLABORED. NO ACUTE DISTRESS NOTED. MED COMPLIANT THIS SHIFT AND WITH INSULIN. PT HAS BEEN IN [facility] [employer] ALL SHIFT. VERY PLESANT WITH STAFF AND PEERS. AMBULATES WITH A WALKER. FBSF: 244, 250. COVERAGE GIVEN. NO BEHAVIORS NOTED THIS SHIFT. WILL CONT PLAN OF CARE.
--- NOTE | 2019-02-07 20:11 | NUR ---
PATIENT IS QUIET MOST OF THE TIME, STAYS TO HIMSELF, COMPLIANT WITH MEDS, NO ADVERSE REACTION NOTED. WILL FOLLOW POC
[2019-02-07 21:29] VITALS: BP 140/80
[2019-02-08 07:00] VITALS: BP 143/62
--- NOTE | 2019-02-08 07:30 | NUR ---
REC'D PT IN HALLWAY SITTING IN CHAIR BY NURSES STATION. ALERT AND ORIENTED TO PERSON. CALM AND COOPERATIVE WITH ASSESSMENT. REDIRECT AND REORIENT NEEDED. MED COMPLIANT. NO AGGRESSION NOTED AT THIS TIME. FALL PRECAUTIONS IN PLACE. WILL CPOC.
--- NOTE | 2019-02-08 15:33 | PN ---
PATIENT:SRINIVASA GOMEZ MEDICAL RECORD: [id number] LOCATION:[facility] ADMISSION DATE: 01/19/19 PROGRESS NOTE DATE OF SERVICE: 02/07/2019 SUBJECTIVE: The patient's case was discussed with staff. He has no new complaint. OBJECTIVE: The patient denies intent to harm himself or others. He is tolerating his medicines well. ASSESSMENT: Vascular dementia. PLAN: The patient will be maintained on current medicines. Long-term prognosis is guarded. TRANSINT:[id number] Voice Confirmation ID: [id number] DOCUMENT ID: [id number] BRODIE CRUZ MD at 1533 CC: [id number] DICTATION DATE: 02/07/19 1026 NUTRITION PROFESSOR: 02/07/19 1719 ADM IN [place] [id number] [place] [address]
[2019-02-08 20:12] VITALS: BP 162/75
--- NOTE | 2019-02-09 04:08 | NUR ---
RECEIVED IN DAYROOM. ATTEMPTING TO SOCIALIZE WITH OTHER PATIENTS. CALM AND COOPERATIVE WITH CARE AND ASSESSMENT. NO AGGRESSION. REDIRECT AND REORIENT NEEDED. RESTING IN BED WITH EYES CLOSED AT THIS TIME. CONTINUE PLAN OF CARE.
--- NOTE | 2019-02-09 07:30 | NUR ---
REC'D PT IN HALLWAY SITTING IN CHAIR BY NURSES STATION. AWAKE AND ALERT TO PERSON ONLY. CALM AND COOPERATIVE WITH ASSESSMENT. NO AGGRESSION NOTED AT THIS TIME. REDIRECT AND REORIENT NEEDED. MED COMPLIANT. FALL PRECAUTIONS IN PLACE. WILL CPOC.
[2019-02-09 08:24] VITALS: BP 135/64
--- NOTE | 2019-02-09 12:14 | NUR ---
Nutrition follow up: Reviewed chart Diabetic mechanical soft diet ordered wiht 90% average po intake Weight 198.4lb RD following
[2019-02-09] MEDS ORDERED: LISINOPRIL10 MG PO (12:59)
[2019-02-09] MEDS ORDERED: DONEPEZIL HCL5 MG PO (12:59)
[2019-02-09] MEDS ORDERED: GABAPENTIN100 MG PO (13:00)
[2019-02-09] MEDS ORDERED: ASPIRIN81 MG PO (13:00)
[2019-02-09] MEDS ORDERED: VOLTAREN100 GM TOPICAL (13:00)
[2019-02-09] MEDS ORDERED: CELEXA20 MG PO (13:00)
[2019-02-09] MEDS ORDERED: PEPCID PO (13:01)
[2019-02-09] MEDS ORDERED: GEODON20 MG PO (13:01)
[2019-02-09] MEDS ORDERED: IBUPROFEN600 MG PO (13:01)
[2019-02-09] MEDS ORDERED: JARDIANCE25 MG PO (13:02)
[2019-02-09] MEDS ORDERED: LANTUS INSULIN10 ML SC (13:02)
[2019-02-09] MEDS ORDERED: VESICARE5 MG PO (13:03)
--- NOTE | 2019-02-09 13:08 | PN ---
PATIENT:SRINIVASA GOMEZ MEDICAL RECORD: [id number] LOCATION:[facility] ADMISSION DATE: 01/19/19 PROGRESS NOTE DATE OF SERVICE: 02/08/2019 SUBJECTIVE: The patient's case was discussed with staff. He has no new complaint. OBJECTIVE: The patient is in good behavioral control. He has poor insight about his condition. He is sleeping reasonably well. ASSESSMENT: Vascular dementia. PLAN: The patient is going to be started on Celexa to help with his depressed mood. He will be monitored for clinical changes associated with its use. His long-term prognosis is guarded. TRANSINT:[id number] Voice Confirmation ID: [id number] DOCUMENT ID: [id number] BRODIE CRUZ MD at 1308 CC: [id number] DICTATION DATE: 02/08/19 162 LABEL PASTER: 02/08/19 1848 ADM IN [facility] [address] [place] [id number]
[2019-02-09 20:09] VITALS: BP 139/63
--- NOTE | 2019-02-10 03:00 | NUR ---
RECEIVED IN DAYROOM. SOCIALIZING WITH STAFF. CALM AND COOPERATIVE WITH CARE AND ASSESSMENT. NO AGGRESSIVE BEHAVIORS. REDIRECT AND REORIENT NEEDED. RESTING IN BED WITH EYES CLOSED AT THIS TIME. CONTINUE PLAN OF CARE.
--- NOTE | 2019-02-10 08:00 | NUR ---
RECEIVED IN HALLWAY, AWAKE AND ALERT. CALM AND COOPERATIVE WITH CARE AND ASSESSMENT. NO AGGRESSION NOTED. REDIRECT AND REORIENT NEEDED. WILL CONTINUE POC.
[2019-02-10 09:07] VITALS: BP 142/62
--- NOTE | 2019-02-10 10:49 | NUR ---
REPORT CALLED TO NURSE VILLALOBOS AT [facility], PERSONAL BELONGINGS RETURNED TO PATIENT.
--- NOTE | 2019-02-10 11:39 | NUR ---
DISCHARGED TO [facility]. BELONGINGS GIVEN TO PATIENT. PATIENT WAS EXCITED ABOUT LEAVING.
--- NOTE | 2019-02-10 15:58 | PN ---
PATIENT:SRINIVASA GOMEZ MEDICAL RECORD: [id number] LOCATION:[facility] ADMISSION DATE: 01/19/19 PROGRESS NOTE DATE OF SERVICE: 02/09/2019 SUBJECTIVE: The patient's case was discussed with staff. He has no new complaint. OBJECTIVE: The patient denies intent to harm himself or others. He generally tolerates his medicines well. He has not been aggressive for several days now, but he is actually quite pleasant. ASSESSMENT: Vascular dementia. PLAN: The patient will be transitioned out of the hospital tomorrow if this level of improvement is maintained. Followup will be with his primary care penitentiary physician. TRANSINT:[id number] Voice Confirmation ID: [id number] DOCUMENT ID: [id number] BRODIE CRUZ MD at 1558 CC: [id number] DICTATION DATE: 02/09/19 1459 SENIOR ERP CONSULTANT: 02/09/19 1606 DIS IN 02/10/19 [place] [id number] [place] [address]
== END 2019-02-10 11:39 | DRG 56 ==
LOC: D.PSYCH 15:00
PROVIDERS: ADMIT Psychiatry & Neurology Psychiatry; ATTEND Psychiatry & Neurology Psychiatry
DX: I69.319 Unspecified symptoms and signs involving cognitive functions following cerebral infarction (principal); I63.9 Cerebral infarction, unspecified; F01.51 Vascular dementia, unspecified severity, with behavioral disturbance; G81.91 Hemiplegia, unspecified affecting right dominant side; N39.0 Urinary tract infection, site not specified; B37.49 Other urogenital candidiasis; I10 Essential (primary) hypertension; E11.9 Type 2 diabetes mellitus without complications; F41.9 Anxiety disorder, unspecified; F32.9 Major depressive disorder, single episode, unspecified; Z74.09 Other reduced mobility; M19.90 Unspecified osteoarthritis, unspecified site; B95.2 Enterococcus as the cause of diseases classified elsewhere; K59.00 Constipation, unspecified; K21.9 Gastro-esophageal reflux disease without esophagitis; E78.5 Hyperlipidemia, unspecified; E55.9 Vitamin D deficiency, unspecified; E11.40 Type 2 diabetes mellitus with diabetic neuropathy, unspecified

== ENCOUNTER 2019-03-29 17:40 | Inpatient (IN) | payer MEDICARE ==
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
[~2019-03-29 17:40] MED LIST changes: +ASPIRIN81 MG PO; +DONEPEZIL HCL5 MG PO; +GABAPENTIN100 MG PO; +GEODON20 MG PO; +GLUCOPHAGE500 MG PO; +HYDROCODON-ACE1 EAC7 PO; +IBUPROFEN600 MG PO; +JARDIANCE10 MG PO; +JARDIANCE25 MG PO; +LISINOPRIL10 MG PO; +VESICARE5 MG PO; +VOLTAREN100 GM TOPICAL
[2019-03-29] MEDS ORDERED: NORVASC2.5 MG PO (18:49)
[2019-03-29] MEDS ORDERED: HYDROCODON-ACE1 EAC7 PO (18:51)
[2019-03-29] MEDS ORDERED: MULTI-DAY VITAM1 TAB PO (18:52)
[2019-03-29] MEDS ORDERED: INSTA-GLUCOSE31 GM (18:55)
[2019-03-29] MEDS ORDERED: GLUCAGEN1 MG/VIAL IM (18:58)
[2019-03-29 20:36] VITALS: BP 140/70
--- NOTE | 2019-03-29 23:13 | NUR ---
RECEIVED IN HALLWAY OUTSIDE OF NURSES STATION. CONFUSED. CALM AND COOPERATIVE WITH CARE AND ASSESSMENT. NO SIGNS OF AGGRESSION. CALM AND COOPERATIVE WITH CARE AND ASSESSMENT. REDIRECT AND REORIENT NEEDED. RESTING IN BED WITH EYES CLOSED. CONTINUE PLAN OF CARE
[2019-03-30 06:01] VITALS: BP 140/65; BMI 29.2
[2019-03-30 06:23] VITALS: BMI 29.2
[2019-03-30 07:37] LABS: BASOPHILS 0.3 % (0-2); EOSINOPHILS 4.7 % (0-7); HEMOGLOBIN 13.5 g/dL (13.5-17.5); IMMATURE GRANULOCYTES 0.3 % (0-5); MCH 29.4 pg (26.0-34.0); MCHC 32.9 g/dL (31.0-37.0); MCV 89.3 fL (80.0-100.0); MONOCYTES 8.9 % (2-11); NEUTROPHILS 57.8 % (40-80); PLATELET COUNT 176 10x3/uL (130-400); RBC 4.59 10x6/uL (4.20-6.10); RDW 14.7 % (11.5-14.5); WBC 6.7 10x3/uL (4.8-10.8)
[2019-03-30 08:17] LABS: ALBUMIN 3.6 g/dL (3.4-5.0); ANION GAP 12.2 mmol/L (8-16); BILIRUBIN - TOTAL 0.29 mg/dL (0.2-1.3); CALCIUM 8.7 mg/dL (8.5-10.1); CHOL - HDL RATIO 2.3 ratio (2.3-4.9); CREATININE - SERUM 1.2 mg/dL (0.6-1.3); LDL-HDL RATIO 0.8 ratio (1.5-3.5); POTASSIUM - SERUM 4.2 mmol/L (3.5-5.1); PROTEIN - SERUM 6.6 g/dL (6.4-8.2); THYROID STIMULATING HORMONE 2.98 uIU/mL (0.36-3.74)
[2019-03-30 09:12] VITALS: BP 122/59
[2019-03-30 11:53] VITALS: Wt 89.5 kg
--- NOTE | 2019-03-30 14:36 | NUR ---
PATIENT IS AWAKE AND ALERT WITH CONFUSION NOTED. CALM AND COOPERATIVE WITH CARE AND ASSESSMENT. FALL PRECAUTIONS IN PLACE. MEDICATION COMPLIANT. REDIRECT AND REORIENT NEEDED. WILL CONTINUE PLAN OF CARE.
[2019-03-30 19:27] VITALS: BP 124/66
--- NOTE | 2019-03-30 20:21 | NUR ---
RECEIVED IN DAYROOM. SITTING IN A CHAIR. CALM AND COOPERATIVE WITH CARE AND ASSESSMENT. NO SIGNS OF AGGRESSION. REDIRECT AND REORIENT NEEDED. CONTINUES TO SIT IN CHAIR. CONTINUE PLAN OF CARE
[2019-03-31 07:16] LABS: RAPID PLASMA REAGIN Non Reactive (Non Reactive)
[2019-03-31 07:47] VITALS: BP 169/71
--- NOTE | 2019-03-31 11:30 | NUR ---
PATIENT IS AWAKE AND ALERT, WITH CONFUSION NOTED. CALM AND COOPERATIVE WITH CARE AND ASSESSMENT. MEDICATION COMPLIANT. REDIRECT AND REORIENT NEEDED. FALL PRECAUTIONS IN PLACE. WILL CONTINUE PLAN OF CARE.
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
--- NOTE | 2019-03-31 15:01 | NUR ---
Nutrition follow-up: Diet: ADA mechanical soft PO intake 100% of meals Labs reviewed RDN following.
[2019-03-31 20:00] VITALS: BP 140/63
--- NOTE | 2019-04-01 02:06 | NUR ---
B) Patient is alert and oriented to person and place, non-verbal but able to make his needs known, I) Administered scheduled medications as ordered, monitored for needs, assisted as needed, R) Mediation compliant, no aggression noted, P) Continue plan of care.
[2019-04-01 09:54] VITALS: BP 116/60
--- NOTE | 2019-04-01 13:24 | PN ---
PATIENT:SRINIVASA GOMEZ MEDICAL RECORD: [id number] LOCATION:[facility]iosBel[facility]ys ADMISSION DATE: 03/29/19 PROGRESS NOTE DATE OF SERVICE: 03/31/2019 SUBJECTIVE: The patient's case was discussed with staff. He has no new complaint. OBJECTIVE: The patient is in good behavioral control with limited insight about his condition. He has not been aggressive. His long-term prognosis is guarded. Current medicines will be maintained. TRANSINT:[id number] Voice Confirmation ID: [id number] DOCUMENT ID: [id number] BRODIE CRUZ MD at 1324 CC: [id number] DICTATION DATE: 03/31/19 1314 MOTORCYCLE MAKER: 03/31/19 1342 ADM IN [place] [id number] [place] [address]
--- NOTE | 2019-04-01 13:24 | NUR ---
RECEIVED PATIENT IN DINING ROOM THIS MORNING FOR B'FAST, APPETITE GOOD, ALERT, CALM, COOPERATIVE. NO AGGRESSION NOTED. MEDS ADMIN PER ORDERS WITH COMPLETE MED COMPLIANCE NOTED. COOPERATIVE WITH STAFF AND PLAN OF CARE. CONT POC INCLUDING MEDS AND GROUP THERAPY DIRECTED.
--- NOTE | 2019-04-01 13:46 | NUR ---
Nutrition follow-up: Participated in todays pt rounding @ 1100. Diet: Mechanical soft, low concentrated sweets PO intake ~98% x 3 meals 03/31/19 Last BM 03/31/19 Wt: 197# RDN following.
[2019-04-01 20:00] VITALS: BP 147/70
--- NOTE | 2019-04-01 21:56 | NUR ---
B) Patient is alert and oriented to self and place, keeps to himself, I) Administered scheduled medications as ordered, assisted with needs, R) Mediation compliant pleasant and friendly toward staff.
[2019-04-02 08:30] VITALS: BP 113/52
--- NOTE | 2019-04-02 12:07 | NUR ---
B) The patient is awake and alert, he does not speak r/t a hx of a stroke. He has not shown any aggression today. He ambulates well with his rolling walker. I) Provide prescribed meds. R) The patient is compliant with meds and unit milieu. P) Continue POC.
--- NOTE | 2019-04-02 14:23 | PN ---
PATIENT:SRINIVASA GOMEZ MEDICAL RECORD: [id number] LOCATION:[facility] Ochoa ADMISSION DATE: 03/29/19 PROGRESS NOTE DATE OF SERVICE: 04/01/2019 SUBJECTIVE: The patient's case was discussed with staff. He has no new complaint. OBJECTIVE: The patient follows commands and understands what is being said to him, but continues to be dysarthric and has significant trouble speaking. ASSESSMENT: No change in diagnoses. PLAN: Current medicines have been reviewed and will be maintained. Long-term prognosis is guarded. TRANSINT:[id number] Voice Confirmation ID: [id number] DOCUMENT ID: [id number] BRODIE CRUZ MD at 1423 CC: [id number] DICTATION DATE: 04/01/19 1450 PREVENTATIVE MAINTENANCE TECHNICIAN: 04/01/19 1508 ADM IN [place] [address] [place] [address]
[2019-04-02 21:46] VITALS: BP 170/67
--- NOTE | 2019-04-03 03:15 | NUR ---
B) Patient is alert and oriented to person and place, calm and cooperative, naps on the couch in the day room, I) Administered scheduled medications as ordered, monitored for safety, R) medication compliant, no aggression noted, P) Continue plan of care.
--- NOTE | 2019-04-03 10:03 | PN ---
PATIENT:SRINIVASA GOMEZ MEDICAL RECORD: [id number] LOCATION:LESVIA HuffmanYeisonBelkys ADMISSION DATE: 03/29/19 PROGRESS NOTE DATE OF SERVICE: 04/02/2019 SUBJECTIVE: The patient's case was discussed with staff. He has no new complaint. OBJECTIVE: The patient denies intent to harm himself or others. He has been in good behavioral control. He is eating and sleeping well. ASSESSMENT: No change in diagnoses. PLAN: Current medicines have been reviewed and will be maintained. Long-term prognosis is guarded. TRANSINT:[id number] Voice Confirmation ID: [id number] DOCUMENT ID: [id number] BRODIE CRUZ MD at 1003 CC: [id number] DICTATION DATE: 04/02/19 1505 CLINICAL SERVICES PROFESSIONAL: 04/02/19 1548 ADM IN [facility] [address] [place] [address]
--- NOTE | 2019-04-03 11:39 | NUR ---
B) The patient is sleepy, he likes to lay on the couch and sleep, he has not shown any aggression today. He uses a rolling walker to ambulate. He does not talk d/t a hx of a stroke. He can at times say "Yes, or No." He knows his name and has poor insight into his situation. I) Provide prescribed meds. R) The patient is compliant with meds. P) Continue POC.
[2019-04-03 11:40] VITALS: BP 120/60
--- NOTE | 2019-04-03 12:43 | NUR ---
Obtained urine for UA and culture.
[2019-04-03 13:37] LABS: APPEARANCE CLEAR (CLEAR); BILIRUBIN NEGATIVE (NEGATIVE); COLOR YELLOW (YELLOW); GLUCOSE 1000 mg/dL (NEGATIVE); KETONE NEGATIVE (NEGATIVE); NITRITE NEGATIVE (NEGATIVE); PROTEIN NEGATIVE (NEGATIVE); SPECIFIC GRAVITY 1.015 (1.005-1.020); UROBILINOGEN NORMAL (NORMAL)
--- NOTE | 2019-04-04 01:18 | NUR ---
B) Patient is alert and oriented to person, non verbal, can make his needs known, I) Administered scheduled medications as ordered, monitored for needs R) mediation compliant, keeps to himself, P) continue plan of care.
[2019-04-04 07:00] VITALS: BP 145/72
--- NOTE | 2019-04-04 12:21 | PN ---
PATIENT:SRINIVASA GOMEZ MEDICAL RECORD: [id number] LOCATION:PhilipSHILABhavya PalaciosBelkys ADMISSION DATE: 03/29/19 PROGRESS NOTE DATE OF SERVICE: 04/03/2019 SUBJECTIVE: The patient's case was discussed with staff. He has no new complaint. OBJECTIVE: The patient is eating and sleeping well. He is cognitively impaired, but has had no serious behavior outbursts. ASSESSMENT: No change in diagnoses. PLAN: Current medicines will be maintained. I anticipate he can be discharged early next week. TRANSINT:[id number] Voice Confirmation ID: [id number] DOCUMENT ID: [id number] BRODIE CRUZ MD at 1221 CC: [id number] DICTATION DATE: 04/03/19 1015 HUMAN SERVICE SPECIALIST: 04/03/19 1106 ADM IN [place] [id number] [place] [address]
--- NOTE | 2019-04-04 15:33 | NUR ---
PATIENT IS ALERT AND ORIENTED TO PERSON. PT IS NONVERBAL ABLE TO MAKE NEEDS KNOWN THROUGH GESTURES. MEDICATION COMPLIANT AND INSULIN COMPLIANT. PATIENT DOES LIKE TO LAY ON COUCH TO SLEEP. NO AGRESSION NOTED THIS SHIFT. PT DOES AMBULATE WITH ROLLING WALKER. WILL CONT PLAN OF CARE.
--- NOTE | 2019-04-04 19:39 | NUR ---
RECEIVED IN DAYROOM. SITTING TO HIMSELF ON THE SOFA. CALM AND COOPERATIVE WITH CARE AND ASSESSMENT. NO SIGNS OF AGGRESSION. REDIRECT AND REORIENT NEEDED. CONTINUES TO SIT QUIETLY ON SOFA. CONTINUE PLAN OF CARE
[2019-04-04 20:08] VITALS: BP 140/53
[2019-04-05 07:00] VITALS: BP 127/60
--- NOTE | 2019-04-05 07:30 | NUR ---
REC'D PT IN HALLWAY WITH PEERS. ALERT AND AWAKE. CALM AND COOPERATIVE WITH ASSESSMMENT. REDIRECT AND REORIENT NEEDED. MED COMPLIANT. NO AGGRESSION NOTED AT THIS TIME. FALL PRECAUTIONS IN PLACE. WILL CPOC.
--- NOTE | 2019-04-05 15:07 | PN ---
PATIENT:SRINIVASA GOMEZ MEDICAL RECORD: [id number] LOCATION:[facility] HuffmanYeisonBelkys ADMISSION DATE: 03/29/19 PROGRESS NOTE DATE OF SERVICE: 04/04/2019 SUBJECTIVE: The patient's case was discussed with staff. He has no new complaint. OBJECTIVE: The patient is in good behavioral control with poor insight about his condition. He tolerates his medicines well. ASSESSMENT: No change in diagnoses. PLAN: Brief supportive and educational interventions were made. The patient has been very cooperative and I anticipate he can be transitioned out of the hospital soon. TRANSINT:[id number] Voice Confirmation ID: [id number] DOCUMENT ID: [id number] BRODIE CRUZ MD at 1507 CC: [id number] DICTATION DATE: 04/04/19 1232 HAND RUG CLEANER: 04/04/19 1522 ADM IN [facility] [address] [place] [address]
[2019-04-05] MEDS ORDERED: LISINOPRIL10 MG PO (19:57)
[2019-04-05] MEDS ORDERED: NORVASC5 MG PO (19:57)
[2019-04-05] MEDS ORDERED: FOLIC ACID1 MG PO (19:59)
[2019-04-05 20:15] VITALS: BP 155/65
--- NOTE | 2019-04-05 21:53 | NUR ---
B.) Patient is alert and oriented to self only. Patient is requesting pain medication for Right arm 9/10. I.) Provided PM medications and PRN [place] 5Mg. Reasses in 30 minutes. R.) Compliant with medications. Patient states pain is 5/10. P.) Continue plan of care.
[2019-04-06 07:00] VITALS: BP 124/60
--- NOTE | 2019-04-06 07:30 | NUR ---
PT IS AWAKE AND ALERT. CALM AND COOPERATIVE WITH ASSESSMENT. NO AGGRESSION NOTED AT THIS TIME. MED COMPLIANT. REDIRECT AND REORIENT NEEDED. FALL PRECAUTIONS IN PLACE. WILL CPOC.
--- NOTE | 2019-04-06 14:42 | NUR ---
PT DISCHARGED TO [facility]. PT IS STABLE CONDITION AT TIME OF TRANSFER. NO C/O PAIN OR DISCOMFORT VOICED OR NOTED. NO S/SX OF DISTRESS NOTED OR VOICED. ALL PAPERWORK FAXED AND COPY SENT WITH [employer]IC[employer] CARLOS AT TIME OF DISCHARGE.
--- NOTE | 2019-04-06 14:54 | PN ---
PATIENT:SRINIVASA GOMEZ MEDICAL RECORD: [id number] LOCATION:[facility] Ochoa ADMISSION DATE: 03/29/19 PROGRESS NOTE DATE OF SERVICE: 04/05/2019 SUBJECTIVE: The patient's case was discussed with staff. He has no new complaint. OBJECTIVE: The patient has been in good behavioral control and is cooperative. He is sleeping and eating well. ASSESSMENT: No change in diagnoses. PLAN: The patient will be transitioned out of the hospital tomorrow. His long-term prognosis is guarded. TRANSINT:[id number] Voice Confirmation ID: [id number] DOCUMENT ID: [id number] BRODIE CRUZ MD at 1454 CC: [id number] DICTATION DATE: 04/05/191953 GROUND PRODUCTS DIRECTOR: 04/05/19 2257 DIS IN 04/06/19 [facility] [address] [place] [address]
--- NOTE | 2019-04-07 15:16 | PN ---
PATIENT:SRINIVASA GOMEZ MEDICAL RECORD: [id number] LOCATION:[facility] Ochoa ADMISSION DATE: 03/29/19 PROGRESS NOTE DATE OF SERVICE: 04/06/2019 SUBJECTIVE: The patient's case was discussed with staff. He has no new complaint. OBJECTIVE: The patient is in good behavioral control. He has poor insight about his condition. ASSESSMENT: No change in diagnoses. PLAN: The patient will be discharged today. He has poor insight about his situation, but is not directly dangerous. TRANSINT:[id number] Voice Confirmation ID: [id number] DOCUMENT ID: [id number] BRODIE CRUZ MD at 1516 CC: [id number] DICTATION DATE: 04/06/19 1619 ENT NURSE: 04/06/19 1850 DIS IN 04/06/19 [facility] [address] [place] [address]
== END 2019-04-06 14:30 | DRG 57 ==
LOC: D.PSYCH 17:40
PROVIDERS: ADMIT Psychiatry & Neurology Psychiatry; ATTEND Psychiatry & Neurology Psychiatry
DX: I69.319 Unspecified symptoms and signs involving cognitive functions following cerebral infarction (principal); F01.51 Vascular dementia, unspecified severity, with behavioral disturbance; I69.351 Hemiplegia and hemiparesis following cerebral infarction affecting right dominant side; Z74.09 Other reduced mobility; I10 Essential (primary) hypertension; E11.9 Type 2 diabetes mellitus without complications; K21.9 Gastro-esophageal reflux disease without esophagitis; E78.5 Hyperlipidemia, unspecified; K59.00 Constipation, unspecified; E55.9 Vitamin D deficiency, unspecified; N28.9 Disorder of kidney and ureter, unspecified; F41.9 Anxiety disorder, unspecified; F32.9 Major depressive disorder, single episode, unspecified

== ENCOUNTER 2019-07-12 14:44 | Inpatient (IN) | payer MEDICARE ==
[~2019-07-12] VITALS: Ht 175.3 cm; Wt 89.0 kg
[~2019-07-12 14:44] MED LIST changes: +FOLIC ACID1 MG PO; +GLUCAGEN1 MG/VIAL IM; +INSTA-GLUCOSE31 GM; +MULTI-DAY VITAM1 TAB PO; +NORVASC2.5 MG PO
[2019-07-12 15:36] VITALS: BP 172/88
[2019-07-12 15:41] LABS: BASOPHILS 0.2 % (0-2); HEMOGLOBIN 12.4 g/dL (13.5-17.5); IMMATURE GRANULOCYTES 0.2 % (0-5); MCH 29.9 pg (26.0-34.0); MCHC 32.6 g/dL (31.0-37.0); MCV 91.6 fL (80.0-100.0); MEAN PLATELET VOLUME 8.8 fL (7.4-10.4); MONOCYTES 8.2 % (2-11); NEUTROPHILS 70.4 % (40-80); PLATELET COUNT 208 10x3/uL (130-400); RBC 4.15 10x6/uL (4.20-6.10); RDW 15.9 % (11.5-14.5); WBC 10.2 10x3/uL (4.8-10.8)
[2019-07-12 16:16] LABS: ALBUMIN 3.9 g/dL (3.4-5.0); ANION GAP 11.8 mmol/L (8-16); BILIRUBIN - TOTAL 0.29 mg/dL (0.2-1.3); CALCIUM 8.4 mg/dL (8.5-10.1); CARBON DIOXIDE 27.2 mmol/L (21.0-32.0); CHOL - HDL RATIO 2.3 ratio (2.3-4.9); CREATININE - SERUM 1.4 mg/dL (0.6-1.3); PROTEIN - SERUM 7.2 g/dL (6.4-8.2); THYROID STIMULATING HORMONE 2.61 uIU/mL (0.36-3.74)
[2019-07-12] MEDS ORDERED: GEODON20 MG PO (16:16)
[2019-07-12] MEDS ORDERED: PLAVIX75 MG PO (16:17)
[2019-07-12] MEDS ORDERED: GABAPENTIN100 MG PO (16:17)
[2019-07-12] MEDS ORDERED: VITAMIN D5000 UNIT PO (16:21)
[2019-07-12] MEDS ORDERED: NOVOLOG100 UNIT/1 SC (16:22)
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
[2019-07-12 20:06] VITALS: BP 117/82
--- NOTE | 2019-07-12 21:10 | NUR ---
RECEIVED IN DAYROOM. WALKING AROUND. USING WALKER. CALM AND COOPERATIVE WITH CARE AND ASSESSMENT. NO SIGNS OF AGGRESSION. REDIRECT AND REORIENT NEEDED. BEING ASSISTED TO BED AT THIS TIME. CONTINUE PLAN OF CARE
[2019-07-13 07:13] LABS: RAPID PLASMA REAGIN Non Reactive (Non Reactive)
[2019-07-13 08:00] VITALS: BP 145/57
--- NOTE | 2019-07-13 10:10 | NUR ---
RECEIVED PT. IN DINING ROOM FOR B'FAST, ALERT, CALM, PLEASANT AFFECT, NO AGGRESSION NOTED. MEDS ADMIN PER ORDERS WITH COMPLETE MED COMPLIANCE NOTED. COOPERATIVE WITH STAFF AND PLAN OF CARE. CONT POC DIRECTED.
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
[2019-07-13 15:55] VITALS: Ht 175.3 cm; Wt 89.0 kg
[2019-07-13 16:07] LABS: APPEARANCE CLEAR (CLEAR); BILIRUBIN NEGATIVE (NEGATIVE); COLOR YELLOW (YELLOW); GLUCOSE 1000 mg/dL (NEGATIVE); KETONE NEGATIVE (NEGATIVE); NITRITE NEGATIVE (NEGATIVE); PROTEIN NEGATIVE (NEGATIVE); UROBILINOGEN NORMAL (NORMAL)
--- NOTE | 2019-07-13 19:42 | NUR ---
RECEIVED IN DAYROOM. SITTING ON THE SOFA BY HIMSLEF. NOT SOCIALIZING. CALM AND COOPERATIVE WITH CARE AND ASSESSMENT. NO SIGNS OF AGGRESSION. REDIRECT AND REORIENT NEEDED. CONTINUES TO SIT QUIETLY ON SOFA. CONTINUE PLAN OF CARE
[2019-07-13 20:09] VITALS: BP 140/65
[2019-07-14 08:26] VITALS: BP 105/78
--- NOTE | 2019-07-14 11:00 | NUR ---
RECEIVED PATIENT IN DINING ROOM FOR B'FAST, ALERT, CALM, COOPERATIVE, NO AGGRESSION NOTED. COOPERATIVE WITH POC. CONT POC DIRECTGED.
--- NOTE | 2019-07-14 12:53 | PN ---
PATIENT:SRINIVASA GOMEZ MEDICAL RECORD: [id number] LOCATION:[facility] Ochoa ADMISSION DATE: 07/12/19 PROGRESS NOTE DATE OF SERVICE: 07/13/2019 SUBJECTIVE: The patient's case was discussed with staff. He has no new complaint. OBJECTIVE: The patient has not been aggressive. He has been cooperative. He is severely impaired cognitively. ASSESSMENT: Vascular dementia. PLAN: Current medicines have been reviewed and will be maintained. Long-term prognosis is guarded. TRANSINT:[id number] Voice Confirmation ID: [id number] DOCUMENT ID: [id number] BRODIE CRUZ MD at 1253 CC: [id number] DICTATION DATE: 07/13/19 1133 FATS AND OILS LOADER: 07/13/19 1138 ADM IN [place] [address] [place] [address]
--- NOTE | 2019-07-14 18:39 | NUR ---
RECEIVED IN HALLWAY BEING TAKEN TO BATHROOM BY MHT. CALM AND COOPERATIVE WITH CARE AND ASSESSMENT. NO SIGNS OF AGGRESSION. REDIERCT AND REORIENT NEEDED. SITTING QUIETLY IN DAYROOM AT THIS TIME. CONTINUE PLAN OF CARE
[2019-07-14 20:01] VITALS: BP 165/63
[2019-07-15 08:50] VITALS: BP 129/67
--- NOTE | 2019-07-15 10:50 | NUR ---
NUTRITION F/U CHART REVIEWED. PT TOLERATING ADA MECH SOFT DIET WITH 100% INTAKE MOST MEALS. WT HAS INCREASED SINCE ADMIT. +BM RECORDED ON 07/14/19 RD FOLLOWING
--- NOTE | 2019-07-15 13:35 | NUR ---
B) The patient is awake and alert, he is pleasant. He has not shown any aggression today. He is not able to speak but a few words, but he is able to make most of needs known. I) Provide prescribed meds. R) The patient is compliant with meds. P) Continue POC.
--- NOTE | 2019-07-15 15:01 | PN ---
PATIENT:SRINIVASA GOMEZ MEDICAL RECORD: [id number] LOCATION:[facility]IA Ochoa ADMISSION DATE: 07/12/19 PROGRESS NOTE DATE OF SERVICE: 07/14/2019 SUBJECTIVE: The patient's case was discussed with staff. He has no new complaint. OBJECTIVE: The patient is in good behavioral control with limited insight about his condition. He tolerates his medicines well. ASSESSMENT: Dementia. PLAN: Current medicines have been reviewed and will be maintained. Long-term prognosis is guarded. TRANSINT:[id number] Voice Confirmation ID: [id number] DOCUMENT ID: [id number] BRODIE CRUZ MD at 1501 CC: [id number] DICTATION DATE: 07/14/19 1653 YARD FOREMAN: 07/14/19 2304 ADM IN [place] [id number] [place] [id number]
[2019-07-15 20:20] VITALS: BP 146/69
--- NOTE | 2019-07-15 21:55 | NUR ---
REC'D SITTING IN THE DAYROOM. DOES NOT SPEAK HOWEVER UNDERSTANDS WHAT IS BEING SAID TO HIM AND WILL NOD HEAD YES OR NO. WILL COME TO NURSES STATION AND IS ABLE TO MAKE NEEDS KNOWN. WEARS GLOVE ON RIGHT HAND AT ALL TIMES. AMBULATES WITH ASSIST OF WALKER. ADMINISTER MEDS AND MONITOR COMPLIANCE. MONITOR FOR AGGRESSION AND REDIRECT NEEDED. MED COMPLIANT. SOCIALLY WITHDRAWN HOWEVER NO AGGRESSION NOTED. CONTINUE POC AND PROVIDE SAFE ENVIRONMENT.
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
[2019-07-16 09:39] VITALS: BP 122/61
--- NOTE | 2019-07-16 14:51 | PN ---
PATIENT:SRINIVASA GOMEZ MEDICAL RECORD: [id number] LOCATION:LESVIA Ochoa ADMISSION DATE: 07/12/19 PROGRESS NOTE DATE OF SERVICE: 07/15/2019 SUBJECTIVE: The patient's case was discussed with staff. He has no new complaint. OBJECTIVE: The patient has not shown any aggression since admission. He is tolerating his medicines well. He is reasonably redirectable. ASSESSMENT: Dementia. PLAN: The patient's Neurontin is going to be increased slightly. His long-term prognosis is guarded. Both supportive and educational interventions were made. TRANSINT:[id number] Voice Confirmation ID: [id number] DOCUMENT ID: [id number] BRODIE CRUZ MD at 1451 CC: [id number] DICTATION DATE: 07/15/19 1542 STAINLESS STEEL FINISHER: 07/15/19 1608 ADM IN [place] [id number] [place] [address]
[2019-07-16 20:00] VITALS: BP 141/63
--- NOTE | 2019-07-16 22:22 | NUR ---
B.) PT IS ALERT AND ORITENTED TO SELF ONLY. HE IS ABLE TO AMBULATE WITH WALKER FOR ASSISTANCE. HE IS ABLE TO MAKE HIS NEEDS KNOWN. I.) PROVIDED PM MEDICATIONS. R.) COMPLIANT WITH ALL MEDICATION. P.) CONTINUE PLAN OF CARE
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
[2019-07-17 09:16] VITALS: BP 97/51
--- NOTE | 2019-07-17 11:44 | NUR ---
The patient is awake and he is quiet, he is aphasic, but tries to communicate. He has not shown any aggression today. He ambulates with a walker. Provide prescribed meds. The patient is compliant with meds. Continue POC.
--- NOTE | 2019-07-17 19:49 | NUR ---
RECEIVED IN DAYROOM. SITTING QUIETLY ON COUCH. CALM AND COOPERATIVE WITH CARE AND ASSESSMENT. NO AGGRESSIVE BEHAVIORS. REDIRECT AND REORIENT NEEDED. CONTINUES TO SIT QUIETLY WHILE WAITING ON PM MEDICAITONS. CONTINUE PLAN OF CARE.
[2019-07-17 20:00] VITALS: BP 148/72
[2019-07-18 08:00] VITALS: BP 104/50
--- NOTE | 2019-07-18 16:49 | NUR ---
RECEIVED PT IN DINING ROOM AT B'FAST TIME. ALERT, CALM, COOPERATIVE, APPETITE GOOD, NO AGGRESSION NOTED. MEDS ADMIN PER ORDERS WITH COMPLETE MED COMPLIANCE NOTED. CONT POC DIRECTED.
[2019-07-18 20:10] VITALS: BP 150/65
--- NOTE | 2019-07-18 22:23 | NUR ---
RECEIVED IN DAYROOM. SITTING ON THE SOFA. CALM AND COOPERATIVE WITH CARE AND ASSESSMENT. NO SIGNS OF AGGRESSION. REDIRECT AND REORIENT NEEDED. RESTING IN BED WITH EYES CLOSED. CONTINUE PLAN OF CARE
[2019-07-19 08:28] VITALS: BP 136/75
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
--- NOTE | 2019-07-19 15:49 | PN ---
PATIENT:SRINIVASA GOMEZ MEDICAL RECORD: [id number] LOCATION:[facility] ADMISSION DATE: 07/12/19 PROGRESS NOTE DATE OF SERVICE: 07/18/2019 SUBJECTIVE: The patient's case was discussed with staff. He has no new complaint. OBJECTIVE: The patient is in good behavioral control with poor insight about his condition. He does tolerate his medicines well. He has not been aggressive today. ASSESSMENT: No change in diagnoses. PLAN: I anticipate the patient can be transitioned back to the [facility] soon. He has fairly limited insight about his situation. He is easily frustrated, but I do not see any evidence of underlying aggression that can be adequately treated with much more additional pharmacologic treatment. TRANSINT:[id number] Voice Confirmation ID: [id number] DOCUMENT ID: [id number] BRODIE CRUZ MD at 1549 CC: [id number] DICTATION DATE: 07/18/19 1159 RIPSAW GRADER: 07/18/19 1208 ADM IN [place] [id number] [place] [address]
--- NOTE | 2019-07-19 15:49 | PN ---
PATIENT:SRINIVASA GOMEZ MEDICAL RECORD: [id number] LOCATION:[facility] ADMISSION DATE: 07/12/19 PROGRESS NOTE DATE OF SERVICE: 07/17/2019 SUBJECTIVE: The patient's case was discussed with staff. He has no new complaint. OBJECTIVE: The patient is in good behavioral control with poor insight about his condition. He tolerates his medicines well. ASSESSMENT: Dementia. PLAN: Current medicines have been reviewed. Supportive and educational interventions were made. TRANSINT:[id number] Voice Confirmation ID: [id number] DOCUMENT ID: [id number] BRODIE CRUZ MD at 1549 CC: [id number] DICTATION DATE: 07/17/19 0831 DEMAND GENERATION MANAGER: 07/17/19 0845 ADM IN [place] [id number] [place] [address]
[2019-07-19 20:05] VITALS: BP 112/72
--- NOTE | 2019-07-19 20:42 | NUR ---
RECEIVED IN DAYROOM. SITTING ON THE SOFA BY HIMSELF. CALM AND COOPERATIVE WITH CARE AND ASSESSMENT. NO SIGNS OF AGGRESSION. REDIRECT AND REORIENT NEEDED. CONTINUES TO SIT QUIETLY IN DAYROOM. CONTINUE PLAN OF CARE
[2019-07-20 08:18] VITALS: BP 111/48
--- NOTE | 2019-07-20 11:30 | NUR ---
AWAKE AND ALERT, DOES NOT SPEAK GREEK. ADMINISTERED PRESCRIBED MEDICATIONS. CALM AND COOPERATIVE WITH CARE AND ASSESSMENT. NO BEHAVIORAL ISSUES NOTED. COMPLIANT WITH TAKING MEDICATIONS. CONTINUE PLAN OF CARE.
--- NOTE | 2019-07-20 15:00 | NUR ---
Nutrition Follow-up: Diet: Diabetic, [facility] soft PO intake: ~76% average x last 9 meals Wt: 205# (07/18/19); Admit wt: 211# (07/12/19) Last BM 07/18/19 Labs noted: Glu 172. Significant meds: lantus, SSI, Jardiance, metformin. Continue diabetic diet. Wt loss noted, will continue to monitor. PO intake is adequate currently. May consider adding Glucerna. RD Following.
--- NOTE | 2019-07-20 15:28 | PN ---
PATIENT:SRINIVASA GOMEZ MEDICAL RECORD: [id number] LOCATION:[facility] ADMISSION DATE: 07/12/19 PROGRESS NOTE DATE OF SERVICE: 07/19/2019 SUBJECTIVE: The patient's case was discussed with staff. He has no new complaint. OBJECTIVE: The patient is in good behavioral control with limited insight about his condition. He has had no aggressive behaviors. ASSESSMENT: Dementia. PLAN: Current medicines have been reviewed and will be maintained. Long-term prognosis is guarded. TRANSINT:[id number] Voice Confirmation ID: [id number] DOCUMENT ID: [id number] BRODIE CRUZ MD at 1528 CC: [id number] DICTATION DATE: 07/19/19 1628 EQUIPMENT DRIVER: 07/19/19 2149 ADM IN [place] [id number] [place] [address]
--- NOTE | 2019-07-20 20:50 | NUR ---
RECEIVED IN DAYROOM. UP USING WALKER TO GOR TO BATHROOM. CALM AND COOPERATIVE WITH CARE AND ASSESSMENT. NO SIGNS OF AGGRESSION. REDIRECT AND REORIENT NEEDED. SITTING QUIETLY ON SOFA AT THIS TIME. CONTINUE PLAN OF CARE
[2019-07-20 21:05] VITALS: BP 163/71
[2019-07-21 08:00] VITALS: BP 108/60
--- NOTE | 2019-07-21 14:20 | PN ---
PATIENT:SRINIVASA GOMEZ MEDICAL RECORD: [id number] LOCATION:[facility] ADMISSION DATE: 07/12/19 PROGRESS NOTE DATE OF SERVICE: 07/20/2019 SUBJECTIVE: The patient's case was discussed with staff. He has no new complaint. OBJECTIVE: The patient is in good behavioral control with limited insight about his condition. He tolerates his medicines well. ASSESSMENT: Dementia. PLAN: Brief supportive and educational interventions were made. Long-term prognosis is guarded. TRANSINT:[id number] Voice Confirmation ID: [id number] DOCUMENT ID: [id number] BRODIE CRUZ MD at 1420 CC: [id number] DICTATION DATE: 07/20/19 1550 SVP DIGITAL AD SALES: 07/20/19 2213 ADM IN [place] [id number] [place] [address]
--- NOTE | 2019-07-21 18:20 | NUR ---
AWAKE AND ALERT, LAYS ON THE SOFA A LOT DURING THE DAY. CALM AND COOPERATIVE WITH CARE AND ASSESSMENT. ADMINISTER PRESCRIBED MEDICATIONS. COMPLIANT WITH MEDICATIONS. NO BEHAVIORS NOTED. WILLL CONTINUE PLAN OF CARE.
[2019-07-21 20:00] VITALS: BP 143/74
--- NOTE | 2019-07-21 22:19 | NUR ---
B.) PT IS ALERT AND ORIENTED TO SELF AND SITUATION. HE IS ABLE TO AMBULATE WITH WALKER. HE IS PLEASANT WITH STAFF AND IS RECEIVED SOCIALIZING WITH PEERS. I.) PROVIDE PM MEDICATION. R.) COMPLIANT WITH ALL MEDICATIONS. P.) CONTINUE PLAN OF CARE
[2019-07-22 08:36] VITALS: BP 126/63
--- NOTE | 2019-07-22 11:10 | NUR ---
NUTRITION F/U PT TOLERATING DIABETIC DIET WITH 100% INTAKE RECENT MEALS. +BM RECORDED ON 07/22/19. NURSING REPORTS THAT PT DRESSES IN SEVERAL LAYERS OF CLOTHING. COULD CONTRIBUTE TO DIFFERENCE IN WT. WILL CONTINUE TO MONITOR WT, PT IS EATING GOOD. MAY NEED TO ADDRESS IF FUTHER WT LOSS RECORDED. RD FOLLOWING
--- NOTE | 2019-07-22 15:25 | PN ---
PATIENT:SRINIVASA GOMEZ MEDICAL RECORD: [id number] LOCATION:[facility] ADMISSION DATE: 07/12/19 PROGRESS NOTE DATE OF SERVICE: 07/21/2019 SUBJECTIVE: The patient's case was discussed with staff. He has no new complaint. OBJECTIVE: The patient denies intent to harm himself or others. He tolerates his medicines well. ASSESSMENT: Dementia. PLAN: Brief supportive and educational interventions were made. Long-term prognosis is guarded. TRANSINT:[id number] Voice Confirmation ID: [id number] DOCUMENT ID: [id number] BRODIE CRUZ MD at 1525 CC: [id number] DICTATION DATE: 07/21/19 1530 TECHNICAL DELIVERY MANAGER: 07/22/19 0001 ADM IN [place] [address] [place] [address]
[2019-07-22 20:00] VITALS: BP 117/58
--- NOTE | 2019-07-22 22:41 | NUR ---
REC'D SITTING IN DAYROOM. NON VERBAL BUT UNDERSTANDS AND ACKNOWLEDGES BY NODDING HEAD. ABLE TO MAKE NEEDS KNOWN BY GESTURING. AMBUALTORY WITH WALKER. WEARS GLOVE TO RIGHT HAND AT ALL TIMES. SITS TO SELF AND WATCHES OTHERS. ADMINISTER MEDS AND MONITOR COMPLIANCE. MONITOR FOR AGGRESSION AND REDIRECT NEEDED. MED COMPLIANT. NO AGRESSION OBSERVED. CONTINUES TO SIT TO SELF AND WATCH OTHERS. CONTINUE POC AND PROVIDE SAFE ENVIRONMENT.
[2019-07-23 08:05] VITALS: BP 143/68
--- NOTE | 2019-07-23 10:09 | NUR ---
PATIENT LAYING ON COUCH IN DAY AREA. PT WEARS ON CAP ON HEAD AND GLOVE ON RIGHT HAND. PT IS NONVERBAL. CAN MAKE SOME NEEDS KNOWN WITH GESTURES AND YES OR NO QUESTIONS. PT REFUSED A SHOWER THIS SHIFT. 2X ATTEMPTS. PT AMBULATES WITH A WALKER. COMPLIANT WITH STAFF IN VITAL SIGNS, ASSESSMENT AND MEDS. NON SKID SOCKS ON. WILL CONT PLAN OF CARE. NO AGGRESSION NOTED THIS SHIFT OR PREVIOUS SHIFT.
--- NOTE | 2019-07-23 14:32 | PN ---
PATIENT:SRINIVASA GOMEZ MEDICAL RECORD: [id number] LOCATION:[facility] ADMISSION DATE: 07/12/19 PROGRESS NOTE DATE OF SERVICE: 07/22/2019 SUBJECTIVE: The patient's case was discussed with staff. He has no new complaint. OBJECTIVE: The patient is in good behavioral control with limited insight about his condition. He has not been actively aggressive today. ASSESSMENT: Dementia. PLAN: Current medicines have been reviewed and will be maintained. Long-term prognosis is guarded. TRANSINT:[id number] Voice Confirmation ID: [id number] DOCUMENT ID: [id number] BRODIE CRUZ MD at 1432 CC: [id number] DICTATION DATE: 07/22/19 1544 TOWERMAN: 07/22/19 2201 ADM IN [place] [address] [place] [address]
[2019-07-23 21:35] VITALS: BP 148/67
--- NOTE | 2019-07-23 22:38 | NUR ---
REC'D PATIENT STANDING AT NURSES STATION. EASILY AGITATED WHEN STAFF HAS DIFFICULTY UNDERSTANDING WHAT HE WANTS. APPEARS TO BE ORIENTED AEB KNOWING WHAT HE WANTS, GESTURING TO STAFF ABOUT WHAT HE WANTS AND IF THINGS ARE NOT DONE TO HIS SATISFACTION HE IS PERSISTENT UNTIL HE GETS WHAT HE WANTS. WEARS A GLOVE TO RIGHT HAND AT ALL TIMES. NOT COOPERATIVE WITH STAFF REQUEST IF IT IS SOMETHING HE DOES NOT WANT TO DO. NON VERBAL HOWEVER ACKNOWLEDGES QUESTIONS BY NODDING HIS HEAD. STAYS TO SELF AND DOES NOT INTERACT WITH OTHERS. ADMINISTER MEDS AND MONITOR COMPLIANCE. REDIRECT FOR AGITATED STATE. MED COMPLIANT. POOR REDIRECTION PATIENT IS PERSISTENT IN GETTING WHAT HE WANTS. EXHIBITS ANGRY AFFECT AND BECOMES LOUD WITH HIS GRUNTING AND WILL DOUBLE UP FIST HOWEVER HAS NOT PHYSICALLY ACTED OUT TOWARD OTHERS AT THIS TIME. CONTINUE POC AND PROVIDE SAFE ENVIRONMENT.
--- NOTE | 2019-07-24 08:40 | NUR ---
PT C/O OF PAIN TO HIS RIGHT SIDE. HYDROCODONE 5 MG GIVEN PO PER PRN ORDER. WILL REASSESS Q 1 HOUR FOR EFFECTIVENESS.
--- NOTE | 2019-07-24 09:40 | NUR ---
PT DENIES ANY PAIN AT THIS TIME.
--- NOTE | 2019-07-24 12:27 | PN ---
PATIENT:SRINIVASA GOMEZ MEDICAL RECORD: [id number] LOCATION:[facility] ADMISSION DATE: 07/12/19 PROGRESS NOTE DATE OF SERVICE: 07/23/2019 SUBJECTIVE: The patient's case was discussed with staff. He has no new complaint. OBJECTIVE: The patient is in good behavioral control and has no thoughts of harming himself or others. He has not been disruptive in any appreciable way. He still appears somewhat paranoid and hypervigilant, but not in a way that I think requires a change in his antipsychotic medication at this point. ASSESSMENT: Dementia. PLAN: Current medicines will be maintained. Long-term prognosis is guarded. TRANSINT:[id number] Voice Confirmation ID: [id number] DOCUMENT ID: [id number] BRODIE CRUZ MD at 1227 CC: [id number] DICTATION DATE: 07/23/19 1435 ADVANCED MANUFACTURING VICE PRESIDENT: 07/23/19 1535 ADM IN [place] [id number] [place] [id number]
--- NOTE | 2019-07-24 17:56 | NUR ---
PT HAS A GOOD DAY THUS SHIFT. NO VERBAL AGGRESSION NOTED AT THIS TIME.
[2019-07-24 20:04] VITALS: BP 134/63
--- NOTE | 2019-07-25 00:06 | NUR ---
REC'D AMBUALTORY ON UNIT WITH WALKER. NON VERBAL BUT NODS HEAD IN RESPONSE TO QUESTIONS. PRESENTS WITH ANGRY AFFECT AND AGITATES EASILY WHEN STAFF HAS DIFFICULTY UNDERSTANDING HIS REQUEST. STAYS TO SELF AND INTERACTS WITH STAFF ONLY WHEN HE IS WANTING SOMETHING. UNCOOPERATIVE WITH REQUEST OF STAFF IF IT IS SOMETHING HE DOES NOT WANT TO TAKE PART IN. ADMINISTER MEDS AND MONITOR COMPLIANCE. ENCOURAGE PATIENT TO ADDRESS WANTS IN A CALM MANNER. MED COMPLIANT. REMAINS EASILY AGITATED AND EXPRESSES SELF WITH ANGRY AFFECT AND INCREASE IN TONE OF VOICE WHEN VERBALIZING "YEAH YEAH YEAH" HE IS POINTING AND SHAKING HIS HEAD. CONTINUE POC AND PROVIDE SAFE ENVIRONMENT.
[2019-07-25 09:05] VITALS: BP 148/80
--- NOTE | 2019-07-25 10:15 | NUR ---
PATIENT CONFUSED, ALERT AND ORIENTED TO SELF ONLY. NONVERBAL CAN MAKE NEEDS KNOWN WITH GESTURES AND YES/NO QUESTIONS. PT AMBULATES WITH WALKER. PT HAS HAD NO AGGRESSIVE BEHAVIOR. PT IS VERY IMPATIENT WITH STAFF AND PEERS. VERY POOR INSIGHT. PT COMPLIANT WITH MEDS, VITALS AND ASSESSMENTS. WILL CONT PLAN OF CARE.
--- NOTE | 2019-07-25 16:54 | NUR ---
PT C/O OF PAIN TO RIGHT ARM AND SHOULDER. HYDROCODONE 5 MG PO GIVEN PER ORDER. WILL REASSESS Q 1 HOUR FOR EFFECTIVENESS.
--- NOTE | 2019-07-25 18:03 | NUR ---
WEIGHTS IN THE COMPUTER. PT REWEIGHTED 2X. PT IS VERY SHORT TEMPER WITH PEOPLE. PT IS NONVERAL. PT CAN ANSWER YES OR NO QUESTIONS. PT TUNRED OFF LIGHT AND HE BECOME UPSET SHAKING HIS FIST. ABLE TO REDIRECT PT
--- NOTE | 2019-07-25 18:05 | NUR ---
PT SHAKED NO TO PAIN IN RIGHT SHOULDER AND ARM.
[2019-07-26 10:44] VITALS: BP 140/56
--- NOTE | 2019-07-26 14:01 | PN ---
PATIENT:SRINIVASA GOMEZ MEDICAL RECORD: [id number] LOCATION:[facility] ADMISSION DATE: 07/12/19 PROGRESS NOTE DATE OF SERVICE: 07/24/2019 SUBJECTIVE: The patient's case was discussed with staff. He has no new complaint. OBJECTIVE: The patient is in good behavioral control. He does have an expressive aphasia that is fairly dense. He has not been agitated, but he has a very low frustration tolerance. ASSESSMENT: No change in diagnoses. PLAN: I anticipate the patient will be transitioned out of the hospital soon. Long-term prognosis is guarded. TRANSINT:[id number] Voice Confirmation ID: [id number] DOCUMENT ID: [id number] BRODIE CRUZ MD at 1401 CC: [id number] DICTATION DATE: 07/24/19 1231 DYEING MACHINE TENDER: 07/24/19 1240 ADM IN [place] [id number] [place] [id number]
[2019-07-26] MEDS ORDERED: NEURONTIN 400400 MG PO ×2 (17:10)
--- NOTE | 2019-07-26 17:42 | NUR ---
PATIENT COOPERATIVE THIS SHIFT, MEDS ADMIN PER ORDERS WITH COMPLETE MED COMPLIANCE NOTED. NO BEHAVIORAL ISSUES NOTED. COOPERATIVE WITH PLAN OF CARE. CONT POC DIRECTED
[2019-07-26 21:37] VITALS: BP 149/62
--- NOTE | 2019-07-26 23:01 | NUR ---
RECEIVED IN HALLWAY WALKING TO HIS BEDROOM. CALM AND COOPERATIVE WITH CARE AND ASSESSMENT. NO SIGNS OF AGGRESSION. REDIRECT AND REORIENT NEEDED. RESTING IN BED WITH EYES CLOSED AT THIS TIME. CONTINUE PLAN OF CARE
[2019-07-27 08:00] VITALS: BP 131/56
--- NOTE | 2019-07-27 10:00 | NUR ---
PATIENT IS COOPERATIVE THIS SHIFT PRESCRIBED MEDICATIONS GIVEN WITH COMPLETE COMPLIANCE. NO BEHAVIORS NOTED. REDIRECT AND REORIENTED NEEDED. WILL CONTINUE PLAN OF CARE.
--- NOTE | 2019-07-27 12:52 | PN ---
PATIENT:SRINIVASA GOMEZ MEDICAL RECORD: [id number] LOCATION:[facility] ADMISSION DATE: 07/12/19 PROGRESS NOTE DATE OF SERVICE: 07/26/2019 SUBJECTIVE: The patient's case was discussed with staff. He has no new complaint. OBJECTIVE: The patient is in good behavioral control. He is tolerating his medicines well. ASSESSMENT: No change in diagnoses. PLAN: Current medicines have been reviewed and will be maintained. Long-term prognosis is guarded. TRANSINT:[id number] Voice Confirmation ID: [id number] DOCUMENT ID: [id number] BRODIE CRUZ MD at 1252 CC: [id number] DICTATION DATE: 07/26/19 1709 WOOD AND HARDWARE OUTFITTER: 07/27/19 0137 ADM IN [place] [address] [place] [address]
--- NOTE | 2019-07-27 14:00 | NUR ---
DISCHARGE INSTRUCTIONS GIVEN TO [place] [facility] FRIER. ALL BELONGINGS GIVEN TO PATIENT.
--- NOTE | 2019-07-28 12:02 | PN ---
PATIENT:SRINIVASA GOMEZ MEDICAL RECORD: [id number] LOCATION:[facility] ADMISSION DATE: 07/12/19 PROGRESS NOTE DATE OF SERVICE: 07/27/2019 SUBJECTIVE: The patient's case was discussed with staff. He has no new complaint. OBJECTIVE: The patient is in good behavioral control with poor insight about his situation. He has not been aggressive. ASSESSMENT: Dementia. PLAN: The patient will be transitioned back to the intermediate today. His long-term prognosis is guarded. TRANSINT:[id number] Voice Confirmation ID: [id number] DOCUMENT ID: [id number] BRODIE CRUZ MD at 1202 CC: [id number] DICTATION DATE: 07/27/19 1256 SHRIMP PEELER: 07/27/19 1402 DIS IN 07/27/19 [facility] [address] [place] [address]
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
== END 2019-07-27 14:00 | DRG 884 ==
LOC: D.PSYCH 14:44
PROVIDERS: ADMIT Psychiatry & Neurology Psychiatry; ATTEND Psychiatry & Neurology Psychiatry
DX: F01.51 Vascular dementia, unspecified severity, with behavioral disturbance (principal); I69.351 Hemiplegia and hemiparesis following cerebral infarction affecting right dominant side; I69.919 Unspecified symptoms and signs involving cognitive functions following unspecified cerebrovascular disease; I10 Essential (primary) hypertension; E11.9 Type 2 diabetes mellitus without complications; M32.9 Systemic lupus erythematosus, unspecified; G62.9 Polyneuropathy, unspecified; I87.8 Other specified disorders of veins; M19.91 Primary osteoarthritis, unspecified site; N32.81 Overactive bladder; N28.9 Disorder of kidney and ureter, unspecified; E55.9 Vitamin D deficiency, unspecified; K59.01 Slow transit constipation; E78.5 Hyperlipidemia, unspecified; K21.9 Gastro-esophageal reflux disease without esophagitis; M79.7 Fibromyalgia; R26.9 Unspecified abnormalities of gait and mobility; F41.8 Other specified anxiety disorders

== ENCOUNTER 2019-10-29 11:21 | Inpatient (IN) | payer MEDICARE ==
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
[~2019-10-29 11:21] MED LIST changes: +NEURONTIN 400400 MG PO; +NOVOLOG100 UNIT/1 SC
[2019-10-29] MEDS ORDERED: GEODON40 MG (13:34)
[2019-10-29] MEDS ORDERED: LISINOPRIL20 MG (13:37)
[2019-10-29] MEDS ORDERED: GABAPENTIN100 MG (13:41)
[2019-10-29 14:38] VITALS: BP 184/82; Wt 90.9 kg
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
[2019-10-29 20:19] VITALS: BP 200/91
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
--- NOTE | 2019-10-30 00:34 | NUR ---
PATIENT PACING IN THE HALLWAY AT THE NURSES STATION AND RELATES HIS RIGHT ARM IS HURTING HIM. PRN ATIVAN PO ADMINISTERED FOR THE ANXIETY AND NORCO PO ADMINISTERED FOR C/O RIGHT ARM PAIN.
--- NOTE | 2019-10-30 01:33 | NUR ---
C/O PAIN TO RIGHT ARM 03/31. ORN NORCO ADMINISTERED OER ORDERS.
[2019-10-30 07:58] LABS: CHOL - HDL RATIO 2.6 ratio (2.3-4.9); LDL-HDL RATIO 1.3 ratio (1.5-3.5)
[2019-10-30 10:42] VITALS: BP 125/61
--- NOTE | 2019-10-30 14:31 | NUR ---
The patient is c/o pain and he rates it a 10/10. Provided a [place], see MAR.
--- NOTE | 2019-10-30 15:20 | NUR ---
The patient says his pain is less, he doesn't say the number. The patient goes to the bathroom, but he gets urine on himself.
--- NOTE | 2019-10-30 16:47 | NUR ---
DIFFICULT TO ASSESS ORIENTATION DUE TO NONVERBAL EXCEPT FOR SAYING YES AND NO.C/O LEFT ARM PAIN,HAS NORCO ORDERED AND HAS GOOD RESPONSE TO IT.KEEPS TO SELF.IS COMPLIANT WITH STAFF AND MEDS.WILL CONTINUE WITH CURRENT PLAN OF CARE,MONITOR FOR CHANGES AND SAFETY.
[2019-10-30 20:00] VITALS: BP 170/79
--- NOTE | 2019-10-31 00:26 | NUR ---
PATIENT STAYS TO HIMSELF, HE HAS AN "ANGRY" LOOK TO HIS FACE MOST OF THE TIME. EASILY AGITATED. PATIENT WAS GIVEN AN ATIVAN PO FOR ANXIETY AND RESTLESSNESS. COMPLIANT WITH MEDS. NO ADVERSE REACTION NOTED. NO AGRESSION NOTED. WILL FOLLOW POC
--- NOTE | 2019-10-31 08:00 | NUR ---
PT IS AWAKE AND ALERT TO PERSON. CALM AND COOPERATIVE WITH ASSESSMENT. PRESCRIBED MEDS PROVIDED ORDERED. MED COMPLIANT. NO BEHAVIORS NOTED AT THIS TIME. WILL CPOC.
[2019-10-31 09:15] VITALS: BP 134/64
[2019-10-31 20:00] VITALS: BP 111/63
--- NOTE | 2019-11-01 01:09 | NUR ---
RECEIVED IN HALLWAY OUTSIDE OF DINING AREA. CALM AND COOPERATIVE WITH CARE AND ASSESSMENT. NO SIGNS OF AGGRESSION. REDIRECT AND REORIENT NEEDED. RESTING IN BED WITH EYES CLOSED AT THIS TIME. CONTINUE PLAN OF CARE
[2019-11-01 07:37] LABS: ANION GAP 13.4 mmol/L (8-16); CALCIUM 8.7 mg/dL (8.5-10.1); CARBON DIOXIDE 27.4 mmol/L (21.0-32.0); CREATININE - SERUM 1.3 mg/dL (0.6-1.3); POTASSIUM - SERUM 3.8 mmol/L (3.5-5.1)
[2019-11-01 09:28] VITALS: BP 145/33
--- NOTE | 2019-11-01 11:39 | NUR ---
Nutrition Follow-up: Diet: Diabetic, Low concentrated sweets, mech soft PO intake: ~87% average x last 7 meals Last BM: none recorded since admit x 3 days now Wt: 203# (10/31/19); Admit Wt: 205# (10/29/19) Meds noted: metformin, Jardiance. Labs noted: Glu 136 H, A1c 7.5% H, Est. Mean plasma Glu 169 H Recommend continue current diet. RD following.
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
--- NOTE | 2019-11-01 19:09 | NUR ---
ALERT, CALM, COOPERATIVE, NO AGGRESSION NOTED. MEDS ADMIN PER ORDERS WITH COMPLETE MED COMPLIANCE NOTED. CONT POC DIRECTED.
[2019-11-01 20:44] VITALS: BP 143/71
--- NOTE | 2019-11-01 22:21 | NUR ---
B.) PT IS ALERT AND ORIENTED TO SELF AND SITUATION ONLY. HE IS NON VERBAL BUT USES YES AND NO TO COMMUNICATE. HE IS ABLE TO AMBULATE ON HIS OWN. HE C/O PAIN TO HIS WHOLE RIGHT SIDE FROM HIS ARM DOWN TO HIS LEGS. I.) PROVIDED PM MEDICATIONS PRESCRIBED AND A PRN NORCO 5 PO. REDIRECT PRN. R.) COMPLIANT WITH ALL MEDICATIONS. DIFFICULT TO REDIRECT AT TIMES. P.) WILL CONTINUE TO MONITOR.
[2019-11-02 08:20] VITALS: BP 99/64
[2019-11-02 12:22] LABS: APPEARANCE HAZY (CLEAR); COLOR YELLOW (YELLOW); SPECIFIC GRAVITY 1.015 (1.005-1.020)
[2019-11-02 12:23] LABS: BACTERIA FEW /hpf (NEGATIVE); BILIRUBIN NEGATIVE (NEGATIVE); EPITHELIAL CELLS OCC /hpf (0-5); GLUCOSE 1000 mg/dL (NEGATIVE); KETONE NEGATIVE (NEGATIVE); MUCUS <1+ /lpf (NONE SEEN); NITRITE NEGATIVE (NEGATIVE); PROTEIN NEGATIVE (NEGATIVE); RED CELLS - URINE OCC /hpf (0-5); UROBILINOGEN NORMAL (NORMAL); WHITE CELLS - URINE 0-5 /hpf (NEGATIVE); YEAST <1+ /hpf (NONE SEEN)
--- NOTE | 2019-11-02 14:56 | NUR ---
ALERT AND CALM THIS SHIFT, NO AGGRESSION NOTED, PREFERS TO ISOLATE SELF FROM GROUP, MEDS ADMIN PER ORDERS WITH COMPLETE MED COMPLIANCE NOTED. COOPERATIVE WITH POC. CONT. POC DIRECTED.
[2019-11-02 19:30] VITALS: BP 118/69
--- NOTE | 2019-11-02 20:09 | NUR ---
RECEIVED IN DAYROOM. SITTING IWTH PEERS AT HIS SIDE. CALM AND COOPERATIVE WITH CARE AND ASSESSMENT. NO SIGNS OF AGGRESSION. REDIRECT AND REORIENT NEEDED. RESTING IN BED WITH EYES CLOSED AT THIS TIME. CONTINUE PLAN OF CARE
--- NOTE | 2019-11-03 07:55 | NUR ---
The patient c/o pain in his right shoulder and he started becoming irritable that the medication was not given to him right then. But when it became the appropriate time Sarahy Lua RN provided [place] 5. Staff explained to him that she was getting it ready. He also requested a big tall cup of coffee. Provided coffee. He does not speak so he makes his sounds. Provide prescribed meds. The patient is compliant with meds. Continue POC.
--- NOTE | 2019-11-03 11:18 | NUR ---
Dr. Soriano requests that the patient be provided paper and a pencil or pen so that he can practice writing with his left hand to be able to communicate. Will explain this to the patient.
[2019-11-03 20:00] VITALS: BP 110/58
--- NOTE | 2019-11-03 21:46 | NUR ---
PATIENT STAYS TO HIMSELF, FLAT AFFECT, COMPLIANT WITH MEDS, NO AGGRESSION NOTED, HOWEVER IT DOESN'T "TAKE MUCH" TO MAKE HIM MADE, HE WANTS TO BE LEFT ALONE MOST OF THE TIME. NO ADVERSE REACTION NOTED. WILL FOLLOW POC
[2019-11-04 09:40] VITALS: BP 116/83
--- NOTE | 2019-11-04 11:39 | NUR ---
Nutrition Follow-up: Diet: Diabetic [facility] Soft PO intake: ~83% average x last 9 meals Last BM: none since admit. WT: 203# (10/31/19); Admit WT: 205# (10/29/19) Meds: glimepiride, metformin, Jardiance, SSI. No new chem labs. Recommend adding bowel regimen to promote BM regularity and prevent decreased appetite. Recommend continue current diet. RD following.
--- NOTE | 2019-11-04 12:26 | NUR ---
The patient is awake and alert, he is pleasant he is not saying he is in pain as much as he has been. He does favor his right side. He is calm and has not shown any aggression. He ambulates with a walker. Provide prescribed meds. The patient is compliant with meds. Continue POC.
[2019-11-04 20:00] VITALS: BP 121/58
--- NOTE | 2019-11-05 01:52 | NUR ---
RECEIVED PATIENT SITTING IN THE DINING ROOM ALONE. ISOLATES FROM THE OTHER PATIENTS. MOSTLY MAKE UNRECOGNIZABLE SOUNDS BUT WILL OCCASIONALLY ANSWER WITH SIMPLE ONE WORD RESPONSES. AMBUALTES WITH ASSIST OF WALKER AND WEARS A GLOVE ON THE RIGHT HAND AT ALL TIMES. ADMINISTER MEDS AND MONITOR COMPLIANCE. MONITOR FOR AGGRESSIVE BEHAVIOR AND REDIRECT NEEDED. MED COMPLIANT. NO AGGRESSION NOTED HOWEVER IF YOU CAN'T UNDERSTAND WHAT HE WANTS HE WILL START GETTING LOUDER WITH HIS NOISES AND POINTING WITH HIS LEFT HAND. CONTINUE POC AND PROVIDE SAFE ENVIRONMENT.
[2019-11-05 08:27] VITALS: BP 125/49
[2019-11-05 09:42] VITALS: BP 108/67
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
--- NOTE | 2019-11-05 09:45 | PN ---
PATIENT:SRINIVASA GOMEZ MEDICAL RECORD: [id number] LOCATION:[facility] ADMISSION DATE: 10/29/19 PROGRESS NOTE DATE OF SERVICE: 11/02/2019 SUBJECTIVE: Mr. Andrews is a 79-year-old Citizen [place] immigrant who has aphasia and secondarily gets very frustrated with his inability to communicate, although he in the past and currently has been against a speech board and although he states he is willing to try to write with his left hand, he has not yet actually done so. On interview, the patient is calm, pleasant and appropriate, able to understand Mohawk and answer my questions if asked so he can answer yes or no. Nursing reports he got slightly frustrated and refused to take a shower this morning because he kept rubbing his leg, but they could not figure out what he wanted. I discussed this with him and emphasized that his ability to write just a few words would make a difference in being able to ascertain his needs. His blood sugar this morning was 260. He is eating 80, 80 and 100% and no snacks. His last sleep time was 8.25 hours and as he is toileting himself we are unsure of the last bowel movement. OBJECTIVE: LATEST VITAL SIGNS: Temperature 98.4, pulse rate 69, respirations 20, blood pressure 99/64 and O2 sat 98%. ASSESSMENT: Unchanged. PLAN: Continue to monitor for aggressive and inappropriate behaviors. Continue to encourage the patient to try to increase his communication abilities by even a small amount of writing. Case discussed with nursing, chart reviewed and the patient interviewed. TRANSINT:[id number] Voice Confirmation ID: [id number] DOCUMENT ID: [id number] OTTO ELLISON MD at 0945 CC: [id number] DICTATION DATE: 11/03/19 1030 CARAMEL CANDY MAKER HELPER: 11/03/19 1421 ADM IN [id number] [place] [address]
--- NOTE | 2019-11-05 10:00 | NUR ---
PATIENT SITTING IN CHAIR. PT ISOLATES HIMSELF FROM OTHER PATIENTS. HE IS NONVERBAL MOSTLY. HE CAN VERBALIZED SINGLE LETTER WORDS. PT DOES NOT LIKE TO TALK MUCH. HE DOES HAS ONE GLOVE ON AND A CAP. PT IS ALERT CONFUSED AND ORIENTED TO SELF ONLY. HE TENDS TO LAUGH AT OTHER PTS. PT IS COMPLIANT WITH MEDS, VITALS AND ASSESSMENTS. PT DOES DRINK ALOT OF COFFEE. WILL DRINK WATER WHEN ASKED. PT USES A WALKER TO AMBULATE. WILL CONT PLAN OF CARE.
--- NOTE | 2019-11-05 18:01 | NUR ---
STAFF HAS PROVIDED PATIENT WILL MULTIPLE CUPS OF COFFEE AND SPLENDIA.
[2019-11-05 19:47] VITALS: BP 104/48
--- NOTE | 2019-11-06 04:32 | NUR ---
B) Patient is alert and oriented to person, KEWEENAW, unable to speak except for yes/no, I) Administered scheduled medications as ordered, monitored for safety R) Medication compliant, up several times during the night flushing his toilet, P) Continue plan of care.
--- NOTE | 2019-11-06 14:16 | NUR ---
ALERT, CALM, CONFUSED, COOPERATIVE. PREFERS TO ISOLATE SELF FROM GROUP. MEDS ADMIN. PER ORDERS WITH COMPLETE MED COMPLIANCE NOTED. NO AGGRESSION OR OTHER BEHAVIORAL ISSUES NOTED. CONT PLAN OF CARE DIRECTED.
[2019-11-06 20:07] VITALS: BP 139/69
--- NOTE | 2019-11-07 02:00 | NUR ---
b) PATIENT IS ALERT AND ORIENTED TO SELF, NON-VERBAL, ABLE TO EXPRESS NEEDS MOST OF THE TIME, CAN ANSEWER YES AND NO, I) ADMINISTERED SCHEDULED MEDICATIONS ORDERED, MONITORED FOR SAFETY R) MEDICATION COMPLIANT, FOLLOW INSTRUCTIONS P) CONTINUE PLAN OF CARE.
[2019-11-07 08:25] VITALS: BP 122/65
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
--- NOTE | 2019-11-07 18:11 | NUR ---
PATIENT CALM, PLEASANT THIS SHIFT, QUIET, COOPERATIVE. PREFERS TO ISOLATE SELF FROM GROUP THUS ENJOYING HIS SPACE. MEDS ADMIN PER ORDERS WITH COMPLETE MED COMPLIANCE NOTED. CONTINUE PLAN OF CARE DIRECTED.
--- NOTE | 2019-11-07 19:39 | NUR ---
RECEIVED IN HALLWAY WALKING TO HIS ROOM. CALM AND COOPERATIVE WITH CARE AND ASSESSMENT. NO SIGNS OF AGGRESSION. REDIRECT AND REORIENT NEEDED. RESTING IN BED WITH EYES CLOSED AT THIS TIME. CONTINUE PLAN OF CARE
[2019-11-08 07:53] VITALS: BP 125/65
--- NOTE | 2019-11-08 08:24 | NUR ---
RECEIVED IN HALLWAY OUTSIDE OF NURSES STATION. CALM AND COOPERATIVE WITH CARE AND ASSESSMENT. NO AGGRESSIVE BEHAVIOR. REDIRECT AND REORIENT NEEDED. EATING BREAKFAST AT THIS TIME. CONTINUE PLAN OF CARE.
--- NOTE | 2019-11-08 20:10 | NUR ---
RECEIVED PATIENT LAYING ON THE BED IN HIS ROOM. ALERT. ORIENTED TO PERSON AND PLACE. ISOLATES FROM THE OTHER PATIENTS. CAN VERBALIZE SINGLE WORD RESPONSES BUT WHEN PATIENT IS ANGRY OR TRYING TO MAKE NEEDS KNOWN HE WILL GESTURE WITH HIS LEFT HAND AND MAKE INCOMPREHENSIBLE SOUNDS. WEARS A GLOVE ON HIS RIGHT HAND AT ALL TIMES. AMBULATES WITH A WALKER. ADMINISTER MEDS AND MONITOR COMPLIANCE. MONITOR PAIN AND TREAT ORDERED. MED COMPLIANT. CONINUE POC AND PROVIDE SAFE ENVIRONMENT.
--- NOTE | 2019-11-08 20:38 | NUR ---
PRN NORCO 5 MG PO ADMINISTERED FOR C/O ARM PAIN 03/01.
[2019-11-08 20:41] VITALS: BP 143/66
[2019-11-09 07:34] VITALS: BP 125/50
--- NOTE | 2019-11-09 07:45 | NUR ---
REC'D PT IN HALLWAY BY NURSES STATION. CALM AND COOPERATIVE WITH ASSESSMENT. PRESCRIBED MEDS PROVIDED ORDERED. NO AGGRESSION NOTED AT THIS TIME. PT IS NONVERBAL BESIDES SIMPLE YES AND NO ANSWERS. WILL CPOC.
--- NOTE | 2019-11-09 12:59 | PN ---
PATIENT:SRINIVASA GOMEZ MEDICAL RECORD: [id number] LOCATION:[facility] ADMISSION DATE: 10/29/19 PROGRESS NOTE DATE OF SERVICE: 11/08/2019 SUBJECTIVE: The patient's case was discussed with staff. He has no new complaint. OBJECTIVE: The patient has not been aggressive today. He is following verbal commands very well, clearly understanding what is being said to him, but his attempts to communicate once again are almost useless. ASSESSMENT: No change in diagnoses. PLAN: Current medicines have been reviewed and will be maintained. Long-term prognosis is guarded. TRANSINT:[id number] Voice Confirmation ID: [id number] DOCUMENT ID: [id number] BRODIE CRUZ MD at 1259 CC: [id number] DICTATION DATE: 11/08/19 1616 JIG FILLER: 11/08/192126 ADM IN [id number] [place] [id number]
--- NOTE | 2019-11-09 19:10 | NUR ---
RECEIVED IN BEDROOM. SITTING ON HIS BED. CALM AND COOPERATIVE WITH CARE AND ASSESSMENT. NO SIGNS OF AGGRESSION. REDIRECT AND REORIENT NEEDED. RESTING IN BED WITH EYES OPEN AT THIS TIME. CONTINUE PLAN OF CARE
[2019-11-09 20:22] VITALS: BP 120/65
--- NOTE | 2019-11-10 08:30 | NUR ---
RECEIVED IN HALLWAY OUTSIDE OF NURSES STATION. CALM AND COOPERATIVE WITH CARE AND ASSESSMENT. NO AGGRESSIBE BEHAVIOR. REDIRECT AND REORIENT NEEDED. EATING BREAKFAST AT THIS TIME. CONTINUE PLAN OF CARE.
[2019-11-10 09:55] VITALS: BP 140/62
--- NOTE | 2019-11-10 11:04 | PN ---
PATIENT:SRINIVASA GOMEZ MEDICAL RECORD: [id number] LOCATION:[facility] ADMISSION DATE: 10/29/19 PROGRESS NOTE DATE OF SERVICE: 11/09/2019 SUBJECTIVE: The patient's case was discussed with staff. He has no new complaint. OBJECTIVE: The patient is in good behavioral control. He has had no aggressive behavior. ASSESSMENT: No change in diagnoses. PLAN: The patient's Neurontin will be increased slightly. His long-term prognosis is guarded. TRANSINT:[id number] Voice Confirmation ID: [id number] DOCUMENT ID: [id number] BRODIE CRUZ MD at 1104 CC: [id number] DICTATION DATE: 11/09/19 1455 PENCIL INSPECTOR: 11/09/19 1844 ADM IN [id number] [place] [address]
--- NOTE | 2019-11-10 21:19 | NUR ---
B.) PT IS ALERT AND ORIENTED TO SELF. HE IS NON-VERBAL BUT ANSWERS YES AND NO QUESTIONS. HE IS WITHDRAWN AT TIMES. HE USES A ROLLER WALKER FOR ASSISTANCE WITH AMBULATION. NO AGGRESSION NOTED THIS SHIFT. I.) PROVIDED PM MEDICATIONS PRESCRIBED. REDIRECT NEEDED. R.) COMPLIANT WITH ALL MEDICATIONS. EASY TO REDIRECT. P.) WILL CONTINUE TO MONITOR.
[2019-11-10 23:25] VITALS: BP 134/67
--- NOTE | 2019-11-11 08:20 | NUR ---
PT SITTING AT TABLE EATING BREAKFAST. PT IS ALERT TO SELF ONLY CONFUSION NOTED. PT IS NONVERBAL CAN ANSWER TO YES OR NO QUESTIONS. PT HAD NO BEHAVIORS NOTED FROM PREVIOUS SHIFT. PT IS COMPLIANT WITH MEDS, VITALS AND ASSESSMENTS. PT HAS NO AGGRESSION NOTED THIS SHIFT. PT AMBULATES WITH A ROLLER WALKER FOR AMBULATION. PT DOES TEND TO ISOLATE HIMSELF. ENCOURAGEMENT NEEDED TO PARTICIPATE IN GROUPS. WILL CONT PLAN OF CARE.
[2019-11-11 10:58] VITALS: BP 99/56
--- NOTE | 2019-11-11 11:34 | PN ---
PATIENT:SRINIVASA GOMEZ MEDICAL RECORD: [id number] [facility] ADMISSION DATE: 10/29/19 PROGRESS NOTE DATE OF SERVICE: 11/10/2019 SUBJECTIVE: The patient's case was discussed with staff. He has no new complaint. OBJECTIVE: The patient is in good behavioral control. He has poor insight about his situation. ASSESSMENT: No change in diagnoses. PLAN: Current medicines have been reviewed and will be maintained. Long-term prognosis is guarded. TRANSINT:[id number] Voice Confirmation ID: [id number] DOCUMENT ID: [id number] BRODIE CRUZ MD at 1134 CC: [id number] DICTATION DATE: 11/10/19 1146 VICE PROVOST: 11/10/19 1308 ADM IN [id number] [place] [address]
[2019-11-11] MEDS ORDERED: CYMBALTA30 MG PO (11:57)
[2019-11-11] MEDS ORDERED: GABAPENTIN100 MG PO (11:57)
--- NOTE | 2019-11-11 12:00 | NUR ---
PATIENT C/O IN NONVERBAL CUES TO PAIN IN HIS LEFT ARM. HYDROCODONE 5 MG PO FOR 10. WILL REASSESS FOR PAIN.
--- NOTE | 2019-11-11 12:41 | NUR ---
Nutrition Follow-up: Diet: Diabetic [facility] Soft PO intake: ~86% average x last 9 meals Last BM: 11/09/19- per MD note. WT: 201# (11/07/19); Admit WT: 205# (10/27/19) Meds noted: glimepiride, metformin, SSI, jardiance Labs noted (11/10/19): Glu 277(H) Noted weight difference. PO intake has been adequate. Will continue to monitor PO intake and wt trend. Recommend continue current diet. RD following.
--- NOTE | 2019-11-11 14:18 | NUR ---
NURSE OFFERED A SHOWER 3X. PT VOICED NO NO NO AND SHOOK HIS HEAD NO. WILL OFFER AGAIN AT A LATER TIME.
--- NOTE | 2019-11-11 16:24 | PN ---
PATIENT:SRINIVASA GOMEZ MEDICAL RECORD: [id number] LOCATION:[facility] ADMISSION DATE: 10/29/19 PROGRESS NOTE DATE OF SERVICE: 11/11/2019 SUBJECTIVE: The patient's case was discussed with staff. He has no new complaint. OBJECTIVE: The patient is in good behavioral control. He has limited insight about his situation. ASSESSMENT: No change in diagnoses. PLAN: The patient will be transitioned out of the hospital tomorrow. His long-term prognosis is guarded. TRANSINT:[id number] Voice Confirmation ID: [id number] DOCUMENT ID: [id number] BRODIE CRUZ MD at 1624 CC: [id number] DICTATION DATE: 11/11/19 1156 SSN/SSBN WEAPONS EQUIPMENT OPERATOR: 11/11/19 1510 ADM IN [address] [id number] [place] [address]
--- NOTE | 2019-11-11 17:23 | NUR ---
PT NONVERBALLY GAVE CUES HE WAS HAVING PAIN IN LEFT ARM. HYDROCODONE 5 MG PO GIVEN PER PRN ORDER. WILL REASSESS FOR EFFECTIVENESS.
[2019-11-11 19:30] VITALS: BP 127/65
--- NOTE | 2019-11-11 23:05 | NUR ---
Patient given [place] 5 at 2300 for generalized pain 5 of 10.
--- NOTE | 2019-11-11 23:36 | NUR ---
RECEIVED PATIENT AMBULATING DOWN HALLWAY GOING TO HIS ROOM. ALERT. ORIENTED TO SELF AND PLACE. DOES NOT INTERACT WITH PEERS. PT UNDERSTANDS CONVERSATION HOWEVER ONLY VERBALIZES "YES/NO" ANSWERS OTHER THAN THAT HE GESTURES WITH HIS LEFT ARM AND VERBALIZES INCOMPREHENSIBLE SOUNDS. ADMINISTER MEDS AND MONITOR COMPLIANCE. MONITOR FOR AGGRESSION AND REDIRECT NEEDED. MED COMPLIANT. NO AGGRESSION NOTED. PT IS ISOLATIVE. IF APPROACHED OR TOUCHED BY OTHER PATIENTS HE IS NOTED TO BECOME AGGRESSIVE. HE IS ISOLATIVE AND JUST WANTS TO BE LEFT ALONE. CONTINUE POC AND PROVIDE SAFE ENVIRONMENT.
--- NOTE | 2019-11-12 04:32 | NUR ---
patient given norco 5 at 04:32 for generalized pain 7 of 10.
--- NOTE | 2019-11-12 08:31 | NUR ---
The patient is awake and alert, he is pleasant. he denies any problems, he has poor insight into his situation. He is oriented to person and place. He ambulates with a walker. He has right sided weakness to his arm and leg. Report called to [facility]ett[facility] st[facility]. Faxed d/c orders, med list, and patient summary. Will provide a hard copy for the dairy truck driver to take to the facility. Continue D/C plan.
[2019-11-12 09:45] VITALS: BP 112/56
--- NOTE | 2019-11-12 11:12 | NUR ---
patient discharged to [facility] this a.m. stable at time of discharge. pt is in a friendly mood and laughing with the staff on the way out of the door. pt had no behaviors noted. pt belongings given to staff member transporting pt. pt used roller walker to ambulate from unit. paperwork faxed and a paper copy sent with pt.
--- NOTE | 2019-11-13 11:26 | PN ---
PATIENT:SRINIVASA GOMEZ MEDICAL RECORD: [id number] LOCATION:[facility] ADMISSION DATE: 10/29/19 PROGRESS NOTE DATE OF SERVICE: 11/12/2019 SUBJECTIVE: The patient's case was discussed with staff. He has no new complaint. OBJECTIVE: The patient is eating and sleeping well and has had no aggressive behavior. ASSESSMENT: No change in diagnoses. PLAN: Current medicines have been reviewed and will be maintained. Long-term prognosis is guarded. I anticipate he can be transitioned out of the hospital today. Followup will be with his primary care senior living physician. TRANSINT:[id number] Voice Confirmation ID: [id number] DOCUMENT ID: [id number] BRODIE CRUZ MD at 1126 CC: [id number] DICTATION DATE: 11/12/19 0742 RETAIL KEY HOLDER: 11/12/19 0809 DIS IN 11/12/19 [facility] [address] [place] [address]
== END 2019-11-12 11:14 | DRG 57 ==
LOC: D.PSYCH 11:21
PROVIDERS: Family Medicine; ADMIT Psychiatry & Neurology Psychiatry; ATTEND Psychiatry & Neurology Psychiatry
DX: I69.319 Unspecified symptoms and signs involving cognitive functions following cerebral infarction (principal); I69.351 Hemiplegia and hemiparesis following cerebral infarction affecting right dominant side; F01.50 Vascular dementia, unspecified severity, without behavioral disturbance, psychotic disturbance, mood disturbance, and anxiety; M19.91 Primary osteoarthritis, unspecified site; M19.90 Unspecified osteoarthritis, unspecified site; N32.81 Overactive bladder; N28.9 Disorder of kidney and ureter, unspecified; E55.9 Vitamin D deficiency, unspecified; E78.5 Hyperlipidemia, unspecified; M79.7 Fibromyalgia; F41.8 Other specified anxiety disorders; R26.9 Unspecified abnormalities of gait and mobility; E11.40 Type 2 diabetes mellitus with diabetic neuropathy, unspecified; K59.00 Constipation, unspecified